=== PATIENT | male | born 1990 | race Caucasian/White ===

== ENCOUNTER 2018-05-06 23:06 | Emergency (ER) | payer OTHER, SELFPAY ==
[2018-05-06 23:07] VITALS: BP 157/87; PULSE 94; RESP 16; TEMP 36.7; O2SAT 97; BMI 60.8
[2018-05-06 23:16] VITALS: O2SAT 98
--- NOTE | 2018-05-06 23:25 | RAD_ITS ---
STUDY: X-RAY CHEST REASON FOR EXAM: Male, 28 years old. Shortness of breath and chest pain. TECHNIQUE: Single frontal view of the chest. COMPARISON: None. FINDINGS: The lungs are clear and expanded. There is no demonstrated pleural abnormality. Normal size heart. Normal mediastinum and adrian. Normal visualized pulmonary arteries. Normal visualized aortic arch and descending thoracic aorta. Normal visualized thoracic spine. Normal visualized ribs, clavicles, and shoulders. There is no demonstrated abnormality of the visualized soft tissue structures of the upper abdomen. RAD/Chest 1 View (Portable) IMPRESSION: No acute pathology. Electronically Signed: Devin Haynes MD at 0:18 EDT , Service support ,
--- NOTE | 2018-05-06 23:25 | EKG12_ITS ---
Test Reason : CP,SOB Blood Pressure : / mmHG Vent. Rate : 082 BPM Atrial Rate : 082 BPM P-R Int : 172 ms QRS Dur : 096 ms QT Int : 384 ms P-R-T Axes : 018 -09 014 degrees QTc Int : 448 ms Normal sinus rhythm Normal ECG Confirmed by LICHA GRANT, MARY ([id number]), newspaper editor LOVE BUCHANAN ([id number]) on 05/08/2018 12:43:49 PM Referred By: HAYDEE Confirmed By:MARY HURT MD
[2018-05-06 23:46] LABS: Absolute Lymphocyte Count 3.32 X10^3/ul (0.83-4.51); Absolute Neutrophil Count 5.2 X10^3/uL (2.0-7.7); Basophil# 0.02 X10^3/uL; Basophil% 0.2 % (0-1); Eosinophil# 0.26 X10^3/uL; Eosinophils% 2.8 % (0-5); Hematocrit 44.9 % (40-54); Hemoglobin 14.5 g/dl (13.0-16.5); Lymphocyte # 3.32 X10^3/ul (4.0); Lymphocyte % 35.1 % (19-41); Mean Corp Hgb Conc 32.3 g/gl (32-36); Mean Corpuscular Hgb 27.5 pg (27.0-32.0); Mean Corpuscular Volume 85.2 fL (80-94); Mean Platelet Vol. 11.5 fl (6.2-12.0); Monocyte# 0.63 X10^3/uL; Monocyte% 6.7 % (0-10); Neutrophil # 5.19 X10^3/uL (2.7-7.7); Neutrophil % 54.9 % (47-70); Platelet Count 214 K/mm3 (150-450); RBC Distribution Width CV 14.1 % (11.6-14.6); RBC Distribution Width SD 43.5 fl (35.1-43.9); Red Blood Count 5.27 M/mm3 (4.6-6.2); White Blood Count 9.5 K/mm3 (4.4-11.0)
[2018-05-06] MEDS: Aspirin 81 MG TAB.CHEW 324 MG PO (23:47)
[2018-05-06] MEDS: 0.9% Normal Saline 1,000 ML 1000 ML IV (23:47)
[2018-05-06 23:48] VITALS: O2SAT 95
[2018-05-06 23:48] LABS: POSITIVE COUNT NO; POSITIVE DIFFERENTIAL NO; POSITIVE MORPHOLOGY NO
[2018-05-06 23:58] LABS: Anion Gap 6 (5-15); BUN 11 mg/dL (7-18); BUN/Creat Ratio 15.4 RATIO (10-20); Calcium,Total 9.1 mg/dL (8.5-10.1); Chloride 105 mmol/L (98-107); Creatinine, Serum 0.72 mg/dL (0.70-1.30); D-Dimer Quantitative (DVT/PE) 0.53 FEU/ug/m (0.27-0.49); EST Glomerular Filtration Rate 138 mL/min (>60); Est Glom Filt Rate - Afr Amer 167 mL/min (>60); Estimated Creatinine Clearance 185.86 ml/min; Glucose 87 mg/dL (74-106); Sodium Level 142 mmol/L (136-145)
--- NOTE | 2018-05-07 00:21 | CT_ITS ---
STUDY: CTA CHEST REASON FOR EXAM: Male, 28 years old. Shortness of breath RADIATION DOSAGE (If Supplied By Facility): CTDIvol = ( 22.21 ) mGy, DLP = ( 1511.69 ) mGycm TECHNIQUE: The examination was performed with the intravenous administration of 100ML ml of Isovue 370 contrast material. Post-processing of the angiographic images was performed, with multiplanar reformation and 3D reconstruction. Individualized dose optimization techniques were used for this CT. COMPARISON: None. FINDINGS: : TRACHEA, THYROID, ESOPHAGUS: No tracheomalacia,stricture or wall thickening. Thyroid and esophagus are normal CARDIOVASCULAR SYSTEM:The thoracic aorta is normal with no aneurysm, dissection or developmental anomalies. The pulmonary trunk and the left and right pulmonary arteries and their lobar and segmental branches do not show any abnormal and persistent filling defects in them. There is therefore no evidence of pulmonary embolism. The heart is normal. There are no venous anomalies EUNICE AND LYMPH NODES: No hilar masses and no mediastinal, hilar, axillary or supraclavicular adenopathy LUNGS, LOW-ATTENUATION: No traction bronchiectasis, honeycombing,emphysema, lung cysts or cavitations LUNGS, HIGH ATTENUATION: No nodules/masses, ground glass opacities/consolidations or increased interstitial markings LUNGS, MOSAIC/CRAZY PAVING: Not evident PLEURA AND CHEST WALL: No plural effusions, pneumothoraces,rib fractures or any osteolytic/osteoblastic changes . The soft tissue chest wall including the breasts are normal UPPER ABDOMEN: Unremarkable CT/CTA Chest W/WO Contrast IMPRESSION: Normal CTA chest examination, without a demonstrated pulmonary embolism or arterial dissection. No acute findings in the lungs Electronically Signed: Aden Alarcon, at 2:28 EDT Tel , Service support ,
[2018-05-07 00:29] VITALS: BP 150/93; PULSE 86; RESP 23; O2SAT 98
[2018-05-07] MEDS: Ondansetron 4 MG/2 ML Vial IV (00:29)
[2018-05-07 01:49] VITALS: BP 134/86; PULSE 83; RESP 22; O2SAT 94
--- NOTE | 2018-05-07 02:33 | ED.VISSUMM ---
- ER Visit Summary Date of Service: 05/07/18 Chief Complaint: Shortness of breath History of Present Illness: The patient is a [address] Gardner. He reports his shortness of breath began approximately 1 week ago. States that severe at worst and moderate currently. Is worsened by laying flat. It is unchanged by exertion. In fact, he reports it is improved by walking around. He denies any fever, chills, or cough. Reports he has chest pain that began this morning at 10. States that intermittent pain last an hour at a time. It is a sharp pain. It is 7 out of 10 at worst and he is pain-free currently. States that this is not related to exertion. Is not worsened by deep breaths or movement. Patient reports that he has had similar episodes for approximately 9 years and does not have a diagnosis. He states his last stress test was approximately 3 years ago. No personal history of DVT. His sister did have a PE. No recent travel pillow. No ankle swelling or calf pain. He does have a history of obstructive sleep apnea. Reports that he has been compliant with his CPAP. Physical Examination: Vitals: Stable. Afebrile. General: Well-nourished and well-developed. Head: Normocephalic atraumatic. Neck: Supple, no lymphadenopathy. No JVD. Nontender. Cardiovascular: Regular rate and rhythm. No murmurs. Respiratory: No respiratory distress. Clear to auscultation bilaterally. Abdominal: Soft, nontender, nondistended, normal bowel sounds. No guarding, rebound, or peritoneal signs. Back: Nontender. Extremities: Nontender, 1+ pitting edema in the lower extremes bilaterally. Skin: Normal color, no rash. Neurologic: Alert and oriented ?3. Cranial nerves II through XII are intact. Normal strength and sensation. Psych: Normal affect. Test Results: EKG is sinus at 82 with no acute changes. Unchanged from 2014. Chest x-ray is normal. CBC is normal. Chem-7 is normal. Troponin is negative. D-dimer 0.53. CT of the chest shows no PE or dissection. Emergency Department Course and Treatment: Patient is resting comfortably without complaint. Treatment Plan: A prolonged discussion the patient at this time I do not have an explanation for his dyspnea. He appears well. He will be discharged instructions follow-up Dr. Gardner within 3-5 days for another exam. Return to the emergency department for any worsening symptoms. Disposition: To home in improved and stable condition. Impression: 1. Atypical chest pain. 2. Dyspnea, uncertain cause. This note was generated with [employer] dictation software. It may contain incorrect words, spelling, and punctuation that were not noted in review of the chart prior to signing ED Disposition - Plan for ED Patient: Chief Complaint: Shortness of Breath Instructions: ED Chest Pain Atypical Unkn Cause Referrals: Gerard Gardner MD [Primary Care Provider] - 3-5 Days
[2018-05-07 02:39] VITALS: BP 133/74; PULSE 80; RESP 18; O2SAT 94
== END 2018-05-07 02:50 | disposition home or self-care (01) ==
PROVIDERS: Emergency Provider Emergency Medicine; Family Provider Family Medicine; PCP Family Medicine
DX: R07.89 Other chest pain (principal); R06.00 Dyspnea, unspecified; R60.0 Localized edema; R11.0 Nausea; R19.7 Diarrhea, unspecified; G47.33 Obstructive sleep apnea (adult) (pediatric)
CPT/HCPCS: 71045; 71275; 80048; 84484; 85025; 85379; 93005; 96361; 96374; 99284; J7030; Q9967; A4216

== ENCOUNTER → 2018-07-19 09:05 | Outpatient (CLI) | payer OTHER, SELFPAY ==
--- NOTE | 2018-07-19 09:08 | CT_ITS ---
STUDY: CT ABDOMEN AND PELVIS WITHOUT CONTRAST REASON FOR EXAM: Male, 28 years old. Hematuria and left flank pain. RADIATION DOSAGE (If Supplied By Facility): CTDIvol = ( 34.45 ) mGy, DLP = ( 1979.87 ) mGycm TECHNIQUE: Transaxial images were obtained from the dome of the diaphragm to the symphysis pubis without oral contrast, and without intravenous contrast. Sagittal and coronal images were reconstructed. Individualized dose optimization techniques were used for this CT. COMPARISON: Comparison is made with prior study dated February 06, 2012. FINDINGS: The visualized lung bases are unremarkable. The visualized portions of the heart are within normal limits. Normal liver. Normal gallbladder and extrahepatic biliary system. Normal spleen. Normal pancreas. Normal bilateral adrenal glands. Normal right kidney. Normal left kidney. There is a small hiatal hernia. Normal small intestine. Normal colon. The appendix is visualized and appears normal. Normal abdominal aorta. Normal inferior vena cava. There is borderline retroperitoneal lymphadenopathy with enlarged nodes no greater than 10mm in the short axis diameter. Normal urinary bladder. A stable small phlebolith is seen in the left hemipelvis. Small benign-appearing bilateral inguinal lymph nodes. Normal abdominal wall. Normal osseous structures. CT/Abdomen/Pelvis without Cont IMPRESSION: Normal unenhanced CT of the abdomen and pelvis. Electronically Signed: Tray Gavin MD at 9:58 EDT Tel [phone], Service support ,
== END ==
PROVIDERS: Family Provider Family Medicine; PCP Family Medicine; Referring Provider Family Medicine; Visit Provider Family Medicine
DX: R10.9 Unspecified abdominal pain (principal); R30.0 Dysuria; R31.29 Other microscopic hematuria
CPT/HCPCS: 74176

== ENCOUNTER → 2019-06-03 | Outpatient (CLI) | payer OTHER, SELFPAY ==
--- NOTE | 2019-06-03 10:30 | VDLE_ITS ---
Reason For Study: Edema RIGHT LEFT GSV is normal. GSV is normal. FV is compressible, spontaneous, phasic, FV is compressible, spontaneous, phasic, competent and demonstrates normal competent and demonstrates normal augmentation. augmentation. POP V is compressible, spontaneous, phasic, POP V is compressible, spontaneous, phasic, competent and demonstrates normal competent and demonstrates normal augmentation. augmentation. T/P Trunk is compressible. T/P Trunk is compressible. PTV is compressible. PTV is compressible. Unable to visualize CFV, SFJ, and PeroV due Unable to visualize CFV, SFJ, and PeroV due to pt body habitus. to pt body habitus. Procedure Exam performed in department. The study was technically limited. The study was technically difficult. A preliminary report was called and/or faxed to [facility]. Interpretation Summary Deep veins of the lower extremities are bilaterally patent and compressible segmentally. There is no evidence of deep vein thrombosis on either side. Valvular competence appears intact within the proximal deep venous systems bilaterally. The great saphenous veins appear bilaterally patent and compressible segmentally. The common femoral veins, peroneal veins, and sapheno-femoral junctions were not visualized on either side due to the patient's body habitus. Ordering Physician: Gerard Gardner Referring Physician: Gerard Gardner Performed By: Lray Lopez RVT
== END | disposition home or self-care (01) ==
LOC: CVS 10:27
PROVIDERS: Family Provider Family Medicine; PCP Family Medicine; Referring Provider Family Medicine; Visit Provider Family Medicine
DX: R60.9 Edema, unspecified (principal)
CPT/HCPCS: 93970

== ENCOUNTER 2020-12-09 16:02 | Observation (INO) | payer OTHER, SELFPAY ==
[2020-12-09] VITALS (25 sets, daily range): BP systolic 127–167; BP diastolic 66–105; PULSE 86–135; RESP 16–29; TEMP 36.4–37.3; O2SAT 80–100; BMI 76.1; BMI 76.2
--- NOTE | 2020-12-09 08:11 | HP.PCM_ITS ---
History and Physical Date of Admission: 12/09/20 HISTORY AND PHYSICAL Rolo Zamorano is a 30 y/o super morbidly obese WM who presents for upper and lower endoscopy. The patient has a history that includes GERD, DHAVAL using CPAP, HTN, anxiety, herniated disc. Chart review reveals a positive Hpylori that was positive in 2014 and treated. At that time his weight was 450#. Weight 07/30/20 was recorded as 605#. BMI 75.6. Presenting complaint: The patient presents today reporting that he was found to be anemic about a year ago, but that he and Dr. Gardner were just keeping an eye on it. This year the iron deficiency was more of an issue. Taking omeprazole 20mg daily for a long time, possibly since 2014, when treated for Hpylori. Usually has dinner: 5-7p. Evening snack: no. Bedtime medications: yes, most of them. Heads to bed: Works 3rd shift, Lays down for an hour when he gets home, then up and lays down again about 8p-11. Sleeps in a regular bed with the head of the bed flat. Reports having had upper abdominal pain, lasting about 3 days, along with belching a lot. This might have been a month or more ago. Eating seemed to make it worse. There was diarrhea the 3rd day. The patient denies and other change in bowel habits. No rectal bleeding. Having a bowel movement about twice a day. PAST MEDICAL HISTORY Essential hypertension GERD (gastroesophageal reflux disease) Super morbid Obesity, BMI 74 E66.01 DHAVAL (obstructive sleep apnea) PAST SURGICAL HISTORY OF wisdom teeth extraction FAMILY HISTORY Heart Paternal Grandfather Psychiatry Maternal Grandfather Diabetes Father CURRENT MEDICATIONS furosemide (LASIX) 40 mg tablet ferrous sulfate 325 mg (65 mg iron) tablet mupirocin (BACTROBAN) 2 % ointment escitalopram oxalate (LEXAPRO) 20 mg tablet lisinopril (PRINIVIL) 10 mg tablet albuterol HFA (VENTOLIN HFA) 90 mcg/actuation inhaler omeprazole (PRILOSEC) 20 mg capsule cholecalciferol, Vitamin D3, (VITAMIN D3) 50,000 unit cap capsule SOCIAL HISTORY: Patient is . He has never smoked. Rolo reports his alcohol use as never. REVIEW OF SYSTEMS: GENERAL: No weight loss, malaise or fevers RESPIRATORY: CPAP for DHAVAL. No new or worsening SOB or cough. CARDIOVASCULAR: Hypertension and BLE edema. GI: The patient states that his appetite has been adequate. He does get hungry. There has been no nausea, no vomiting. He denies dysphagia and denies odynophagia. There has occasionally been indigestion without heartburn. There has not been regurgitation. Bowel habits have been regular. There had been diarrhea, one episode,as reported above. There has not been constipation. The patient denies rectal bleeding. There has not been melena. Intermittent abdomina l pain that is located in the upper abdomen. MUSCULOSKELETAL: History of herniated disc. Negative for new or worsening joint pain or swelling, back pain or muscle pain PSYCH: Positive for anxiety. HEMATOLOGY/LYMPHOLOGY Positive for lymphedema: lower extremities reported in 08/2020. No blood disorder. ENDOCRINE: Negative for thyroid or diabetes. NEURO: No history of headaches, syncope, paralysis, seizures or tremors All other reviewed and negative other than HPI. PHYSICAL EXAMINATION: Blood pressure 140/99, pulse 91, height 191.6 cm (6' 3.43), weight (!) 274.4 kg (605 lb), SpO2 95 %. General Appearance: Well appearing, alert, in no acute distress, well-hydrated, well nourished. Morbidly obese. Skin: Skin color, texture, turgor normal, no suspicious rashes or lesions. Head: Normocephalic, no masses, lesions, tenderness or abnormalities. Eyes: Anicteric sclera. Pupils are equally round and reactive to light. Extraocular movements are intact. Lips, teeth and tongue normal. Neck: Supple, no adenopathy. Lungs: Lungs clear to auscultation. No wheezing, rhonchi, rales.. Heart: RRR without murmur. Abdomen: Abdomen rotund, non-tender. Bowel sounds normal. No palpable masses, organomegaly. Extremities: Edema: Bilateral, non-pitting. Neurologic: Gait normal. Sensation grossly intact. Impression: Iron deficiency anemia 2)halfway use of PPI 3)history of Hpylori Plan: Continue omeprazole for now. The patient is scheduled for upper endoscopy, with MAC. Preparation for the procedure and the procedure itself have been explained in detail. The risks, benefits, anticipated outcomes and possible complications were mentioned. I also explained the procedure in understandable terms and the patient was given printed material concerning the planned procedure. The patient had the opportunity to ask questions concerning the planned procedure. The patient freely consents to the planned procedure. The patient is scheduled for a procedure at the [facility]. I have explained that his/her health and safety, as well as that of our staff is important. The risk of exposure to, or potential harm posed by the COVID-19 virus with having a procedure at this time is as minimal as possible. Measures are being taken to minimize any potential risk of infection. I have explained that he/she will see that the staff will be wearing masks and gloves. The patient's temperature will be taken on arrival, they will be asked a series of questions to reassess current wellness, and asked to use hand sales process manager foam. The bed areas are cleaned and the procedure rooms are thoroughly disinfected between patients. Procedure rooms will be alternated to give the disinfection more than enough time to ensure adequate protection for all involved. The patient is asked to call with any questions or concerns, or if there is a change in health status between now and the scheduled procedure. Amanda Mathis RN PATIENT SCHEDULING COORDINATOR.HAND HEEL SEAT FITTER
[2020-12-09] MEDS: Lactated Ringers 1,000 ML 75 ML IV (11:16)
--- NOTE | 2020-12-09 12:14 | OP.CCLET_ITS ---
12/09/2020 Gerard Gardner Re : Upper GI endoscopy procedure for Rolo Zamorano Dear Kendra This procedure was performed on Wednesday, December 09, 2020. My impressions and recommendations are as follows: Impressions : - The procedure was aborted due to the patient's body habitus. - No specimens collected. Recommendations : - Discharge patient to home. - Continue present medications. My findings are described in the full procedure note, which is enclosed. If I can be of further assistance, please feel free to contact me at Doctor phone number(s): , Work: . Sincerely, MD Leslie Paredes MD 12/09/2020 12:14:13 PM This report has been signed electronically.
--- NOTE | 2020-12-09 12:14 | OP.EGD_ITS ---
Patient Name: Rolo Zamorano Procedure Date: 12/09/2020 11:37 AM Date of : 1990 Age: 30 Procedure: Upper GI endoscopy Indications: Heartburn Providers: Leslie Jay MD Referring MD: Leslie Jay MD Medicines: See the Anesthesia note for documentation of the administered medications Patient Profile: Refer to note in patient chart for documentation of history and physical. Complications: No immediate complications. Procedure: Pre-Anesthesia Assessment: - see anesthesia note After obtaining informed consent, the endoscope was passed under direct vision. Throughout the procedure, the patient's blood pressure, pulse, and oxygen saturations were monitored continuously. The procedure was aborted. The scope was inserted only to patient's back of mouth. Medications were given by anesthesia provider prior to insertion. The procedure was aborted due to the patient's body habitus, patient had bronchospasm and given concern for airway, procedure was immediately aborted. Scope In: 11:58:49 AM Scope Out: 12:02:36 PM Total Procedure Duration Time 0 hours 3 minutes 47 seconds Findings: aborted procedure Impression: - The procedure was aborted due to the patient's body habitus. - No specimens collected. Recommendation: - Discharge patient to home. - Continue present medications. Diagnosis Code(s): --- Professional --- R12, Heartburn Z53.8, Procedure and treatment not carried out for other reasons MD Leslie Paredes MD 12/09/2020 12:14:13 PM This report has been signed electronically. Number of Addenda: 0 Note Initiated On: 12/09/2020 11:37 AM
--- NOTE | 2020-12-09 14:20 | SUR.PHASEII ---
GAVE PATIENT AN INCENTIVE SPIROMETER AND INSTRUCTED ON USE. PATIENT DEMONSTRATED USE.
--- NOTE | 2020-12-09 14:57 | SUR.PHASEII ---
Dr. Rojas on phone with Dr. askew discussing pt. breathing that pulse ox low. Dr. askew states wants pt. sent to er to be worked up.
--- NOTE | 2020-12-09 16:19 | PCM.HP.STD ---
<Malia Castro MARKETING/SALES PERSON - Last Filed: 12/09/20 16:28> Problem List (1) Morbid obesity with BMI of 70 and over, adult Status: Chronic (2) DHAVAL (obstructive sleep apnea) Status: Chronic (3) Anxiety Status: Chronic (4) GERD (gastroesophageal reflux disease) Status: Chronic (5) HTN (hypertension) Status: Chronic History of Present Illness Date of Admission: 12/09/20 Chief Complaint: Bronchospasm during EGD. The patient is a 30 year old M who presents with bronchospasm during EGD procedure. Patient states they were not able to complete EGD due to bronchospasm. He denies shortness of breath, cough. He complains of mild tickle in his upper chest. Denies asthma history although he uses a as needed inhaler for shortness of breath. He has a past medical history of morbid obesity, DHAVAL on CPAP, hypertension, anxiety, GERD. Patient states he was undergoing EGD due to significant reflux. Past Medical History Past Medical History (Chronic Problems): Chronic Problems Morbid obesity with BMI of 70 and over, adult (Chronic) DHAVAL (obstructive sleep apnea) (Chronic) Anxiety (Chronic) GERD (gastroesophageal reflux disease) (Chronic) HTN (hypertension) (Chronic) Allergies Iodinated Contrast Media [CONTRASTS] Adverse Reaction (Verified 12/03/20 13:09) Vomiting Home Medications: Ambulatory Orders Medication Instructions Recorded Albuterol Aerosols [Ventolin 2.5 mg INHALATION Q2H PRN PRN 12/03/20 Aerosols] Escitalopram Oxalate [Lexapro] 20 mg PO DAILY 12/03/20 Ferrous Sulfate 325 mg PO BIDCM 12/03/20 Furosemide [Lasix] 40 mg PO DAILY 12/03/20 Lisinopril [Zestril] 10 mg PO DAILY 12/03/20 Omeprazole 20 mg PO DAILY 12/03/20 Surgical History: - - [place] teeth extraction Psychiatric History: Anxiety Lives: Spouse/ Significant Other Smoking Status: Never smoker Tobacco Use: Non-smoker Alcohol: None Drugs: None - *Family History Maternal History Items: - - Denies known maternal medical history including cardiac history. Paternal History Items: - - Denies known paternal medical history including cardiac history. Review of Systems Constitutional: Denies: Chills, Fever, Weight Change HEENT: Denies: Head Aches, Sinus Congestion, Sinus Drainage Cardiovascular: Denies: Chest Pain, Palpitations Respiratory: Denies: Cough, Shortness of breath at rest, Sputum production Gastrointestinal: Denies: Abdominal Pain, Nausea, Vomiting Genitourinary: Denies: Dysuria Musculoskeletal: Denies: Joint Pain, Joint Tenderness Skin: Denies: Rash, Wounds Neurological: Denies: Numbness, Tingling, Focal weakness Psychiatric: Denies: Anxiety, Depression, Homicidal Ideations, Suicidal Ideations Hematologic/ Lymphatic: Denies: Easy Bruising, Easy Bleeding VTE Information - Inpt Only VTE Present on Admission: No VTE Mechan Device Prophylaxis: None VTE Pharm Prophylaxis ordered?: Yes - Physical Exam Vitals/I&O's: Vital Signs Temp Pulse Resp BP Pulse Ox 98.1 F 95 22 H 149/98 H 80 12/09/20 14:02 12/09/20 14:02 12/09/20 14:02 12/09/20 14:02 12/09/20 14:02 Oxygen Flow Rate (L/min) 10 Oxygen Delivery Method Room Air Weight: 625 lb 10.75 oz Body Mass Index (BMI) 76.1 General: Alert, Oriented x3, Cooperative HEENT: Atraumatic, PERRLA, EOMI, Normocephalic Neck: Supple, No JVD, Negative Carotid Bruits Lungs: Clear to auscultation, Diminished, - - Globally diminished Cardiovascular: Regular rate, No murmurs Abdomen: Bowel Sounds Present, Soft, Non Tender, Non-Distended, Obese Extremities: No clubbing, No cyanosis, Capillary Refill Less than 3 Seconds, Edema - Bilateral lower extremities Skin: No rashes, No breakdown, - - Chronic hyperpigmentation BLLE Musculoskeletal: No Tenderness to Palpation of Joints or Extremities Neurological: Cranial nerves II-XII grossly intact, Neuro grossly intact Psych/Mental Status: Normal Affect, Appropriate Microbiology Past 72 Hours 12/08/20 09:08 Interface Orders SARS-CoV-2 Antigen (Rapid) - Final Current Medications Acetaminophen (Acetaminophen 325 Mg Tablet) 650 mg PO Q6H PRN PRN PRN Reason: Pain Score 1-10/Temp > 100.7 F Albuterol Sulfate (Albuterol 2.5 Mg/3 Ml Vial.Neb.) 2.5 mg INHALATION Q2H PRN PRN PRN Reason: SOB/Wheezing Escitalopram Oxalate (Escitalopram Oxalate 20 Mg Tablet) 20 mg PO DAILY [facility] Ferrous Sulfate (Ferrous Sulfate 325 Mg Tablet) 325 mg PO BIDCM [facility] Furosemide (Furosemide 40 Mg Tablet) 40 mg PO DAILY [facility] Melatonin (Melatonin 3 Mg Tablet) 3 mg PO QHS PRN PRN PRN Reason: INSOMNIA Non-Formulary Medication (Omeprazole) 20 mg PO DAILY [facility] Ondansetron HCl (Ondansetron 4 Mg/2 Ml Vial) 4 mg IV Q8H PRN PRN PRN Reason: NAUSEA/VOMITING Sodium Chloride (0.9% Normal Saline 250 Ml Iv.Soln.) 250 ml IV UD PRN PRN Reason: Hypotension Sodium Chloride (0.9% Saline Lock 10 Ml Syringe) 10 - 40 ml IV UD PRN PRN Reason: SALINE FLUSH Assessment/Plan 1. Bronchospasm-occurring during EGD. Now appears stable. As needed albuterol aerosol. Not documented to be hypoxic. Monitor overnight. 2. Morbid obesity-diet and lifestyle modifications encouraged. 3. DHAVAL-continue home CPAP regimen. 4. Hypertension-continue Lasix, lisinopril. 5. Anxiety-on Lexapro. DVT prophylaxis- Lovenox sc This patient was seen by ANTONIA RicardoC under the supervision of Dr. Leonard. <José Miguel Leonard F - Last Filed: 12/09/20 18:32> History of Present Illness The patient is a 30 year old M [] Past Medical History Allergies Iodinated Contrast Media [CONTRASTS] Adverse Reaction (Verified 12/03/20 13:09) Vomiting - Physical Exam Vitals/I&O's: Vital Signs Temp Pulse Resp BP Pulse Ox 97.6 F L 103 H 26 H 158/100 H 94 12/09/20 16:00 12/09/20 18:00 12/09/20 18:00 12/09/20 18:00 12/09/20 18:00 Oxygen Flow Rate (L/min) 2 Oxygen Delivery Method Nasal Cannula Weight: 625 lb 10.75 oz Body Mass Index (BMI) 76.1 Intake and Output for Last 24 Hours 12/07/20 12/08/20 12/09/20 23:59 23:59 23:59 Intake Total 743.75 / 743.75 Balance 743.75 / 743.75 Microbiology Past 72 Hours 12/08/20 09:08 Interface Orders SARS-CoV-2 Antigen (Rapid) - Final Laboratory Results 12/09/20 16:28: Sodium 142, Potassium 3.7, Chloride 108 H, Carbon Dioxide 32.0, Anion Gap 2 L, BUN 12, Creatinine 0.58 L, Estim Creat Clear Calc 226.56, Est GFR (MDRD) Af Amer 208, Est GFR (MDRD) Non-Af 172, BUN/Creatinine Ratio 20.6 H, Glucose 101, Calcium 8.6 12/09/20 16:28: WBC 8.2, RBC 4.75, Hgb 11.9 L, Hct 39.1 L, MCV 82.3, MCH 25.1 L, MCHC 30.4 L, RDW Std Deviation 50.6 H, RDW Coeff of Melchor 17.0 H, Plt Count 211, MPV 10.9, Immature Gran % (Auto) 0.200, Neut % (Auto) 74.1 H, Lymph % (Auto) 18.4 L, Jenkins % (Auto) 5.6, Eos % (Auto) 1.3, Baso % (Auto) 0.4, Absolute Neuts (auto) 6.1, Absolute Lymphs (auto) 1.51, Nucleated RBC % 0 Current Medications Acetaminophen (Acetaminophen 325 Mg Tablet) 650 mg PO Q6H PRN PRN PRN Reason: Pain Score 1-10/Temp > 100.7 F Albuterol Sulfate (Albuterol 2.5 Mg/3 Ml Vial.Neb.) 2.5 mg INHALATION Q2H PRN PRN PRN Reason: SOB/Wheezing Last Admin: 12/09/20 16:31 Dose: 2.5 mg Documented by: Enoxaparin Sodium (Enoxaparin 40 Mg/0.4 Ml Syringe) 40 mg SC DAILY [facility] Escitalopram Oxalate (Escitalopram Oxalate 20 Mg Tablet) 20 mg PO DAILY [facility] Ferrous Sulfate (Ferrous Sulfate 325 Mg Tablet) 325 mg PO BIDCM [facility] Last Admin: 12/09/20 17:33 Dose: 325 mg Documented by: Furosemide (Furosemide 40 Mg Tablet) 40 mg PO DAILY [facility] Melatonin (Melatonin 3 Mg Tablet) 3 mg PO QHS PRN PRN PRN Reason: INSOMNIA Ondansetron HCl (Ondansetron 4 Mg/2 Ml Vial) 4 mg IV Q8H PRN PRN PRN Reason: NAUSEA/VOMITING Pantoprazole Sodium (Pantoprazole Sodium 20 Mg Tablet) 20 mg PO DAILY [facility] Sodium Chloride (0.9% Normal Saline 250 Ml Iv.Soln.) 250 ml IV UD PRN PRN Reason: Hypotension Sodium Chloride (0.9% Saline Lock 10 Ml Syringe) 10 - 40 ml IV UD PRN PRN Reason: SALINE FLUSH Last Admin: 12/09/20 17:33 Dose: 20 ml Documented by: Addendum: Dr. Leonard I personally examined the patient and reviewed the chart. I agree with the above. 30-year-old male with super morbid obesity presents for an EGD and colonoscopy however during the procedure after his conscious sedation with ketamine and Versed, he developed a bronchospasm requiring oxygen. He does not have any stridor on exam and states he otherwise feels fine. He was accepted as a direct admission and transferred to the ICU. He is now on 2 L nasal cannula and doing well and will continue with albuterol meds.. He does wear CPAP at night for his obstructive sleep apnea, his will bring it in tonight. If necessary, if his oxygen requirements start increasing, would add Benadryl. OBSV E&M: 35477 Initial observation care L2
[2020-12-09] MEDS: Albuterol 2.5 MG/3 ML VIAL.NEB. INHALATION ×5 (16:31→21:09)
--- NOTE | 2020-12-09 16:31 | CPS ---
Pt was brought to ICU and was given Albuterol x 3 d/t anesthesia observing pt bronchospasm after medication was given before a upper endoscopy, per surgery notes, the scope had not passed beyond the back of his mouth when he bronchospasmed. Pt's breath sounds are clear and diminished, no wheezing auscultated @this time.
[2020-12-09 16:40] LABS: Absolute Lymphocyte Count 1.51 X10^3/uL (0.83-4.51); Absolute Neutrophil Count 6.1 X10^3/uL (2.0-7.7); Basophil# 0.03 X10^3/uL; Basophil% 0.4 % (0-1); Eosinophil# 0.11 X10^3/uL; Eosinophils% 1.3 % (0-5); Hematocrit 39.1 % (40-54); Hemoglobin 11.9 g/dL (13.0-16.5); Lymphocyte # 1.51 X10^3/ul (4.0); Lymphocyte % 18.4 % (19-41); Mean Corp Hgb Conc 30.4 g/dL (32-36); Mean Corpuscular Hgb 25.1 pg (27.0-32.0); Mean Corpuscular Volume 82.3 fL (80-94); Mean Platelet Vol. 10.9 fl (6.2-12.0); Monocyte# 0.46 X10^3/uL; Monocyte% 5.6 % (0-10); NRBC Flagged by Analyzer 0 % (0-5); Neutrophil # 6.07 X10^3/uL (2.7-7.7); Neutrophil % 74.1 % (47-70); Platelet Count 211 K/mm3 (150-450); RBC Distribution Width SD 50.6 fl (35.1-43.9); Red Blood Count 4.75 M/mm3 (4.6-6.2); White Blood Count 8.2 K/mm3 (4.4-11.0)
--- NOTE | 2020-12-09 17:00 | CPS ---
Addendum entered and electronically signed by Sasha Gilliland RRT 12/09/20 17:35: pt's is unable to bring his CPAP in so R.T. will set one up tonight. Original Note: Pt is going to call his and see if she can bring in his CPAP of 14cm H2O so he can wear it tonight instead of one of the hospital's machines.
[2020-12-09 17:08] LABS: Anion Gap 2 (5-15); BUN 12 mg/dL (7-18); BUN/Creat Ratio 20.6 RATIO (10-20); Calcium,Total 8.6 mg/dL (8.5-10.1); Chloride 108 mmol/L (98-107); Creatinine, Serum 0.58 mg/dL (0.70-1.30); EST Glomerular Filtration Rate 172 mL/min (>60); Est Glom Filt Rate - Afr Amer 208 mL/min (>60); Estimated Creatinine Clearance 226.56 ml/min; Glucose 101 mg/dL (74-106); Potassium 3.7 mmol/L (3.5-5.1); Sodium Level 142 mmol/L (136-145)
[2020-12-09] MEDS: Ferrous Sulfate 325 MG Tablet PO (17:33)
[2020-12-09] MEDS: 0.9% Saline Lock 10 ML Syringe IV (17:33)
--- NOTE | 2020-12-09 23:29 | CPS ---
AutoPAP with pressure range of min 5 and max 20. With no O2 added to SL machine
[2020-12-10] VITALS (7 sets, daily range): BP systolic 151–162; BP diastolic 79–84; PULSE 72–95; RESP 14–27; TEMP 36.4–36.8; O2SAT 91–95
--- NOTE | 2020-12-10 00:23 | CPS ---
Patient was changed to CPAP of 14 with 3L O2 Bled instead of AutoPAP because of desaturations noted. Patient wears CPAP of 14 at home, but RESPIRATORY DIRECTOR changed to AutoPAP initially because of possible under titration of pressure due to how long ago sleep study was. After around 20mins director of midwifery/staff midwife noted desaturations into the mid 70s on CPAP of 14 with 3L O2. RESPIRATORY DIRECTOR increased CPAP pressure to 17.
[2020-12-10 03:26] LABS: Absolute Lymphocyte Count 1.51 X10^3/uL (0.83-4.51); Absolute Neutrophil Count 5.1 X10^3/uL (2.0-7.7); Basophil# 0.03 X10^3/uL; Basophil% 0.4 % (0-1); Eosinophil# 0.14 X10^3/uL; Eosinophils% 1.9 % (0-5); Hematocrit 39.3 % (40-54); Hemoglobin 11.7 g/dL (13.0-16.5); Lymphocyte # 1.51 X10^3/ul (4.0); Lymphocyte % 20.7 % (19-41); Mean Corp Hgb Conc 29.8 g/dL (32-36); Mean Corpuscular Hgb 25.1 pg (27.0-32.0); Mean Corpuscular Volume 84.2 fL (80-94); Mean Platelet Vol. 10.4 fl (6.2-12.0); Monocyte# 0.52 X10^3/uL; Monocyte% 7.1 % (0-10); NRBC Flagged by Analyzer 0 % (0-5); Neutrophil # 5.09 X10^3/uL (2.7-7.7); Neutrophil % 69.6 % (47-70); Platelet Count 206 K/mm3 (150-450); RBC Distribution Width CV 17.1 % (11.6-14.6); RBC Distribution Width SD 52.2 fl (35.1-43.9); Red Blood Count 4.67 M/mm3 (4.6-6.2); White Blood Count 7.3 K/mm3 (4.4-11.0)
[2020-12-10 03:38] LABS: Anion Gap 4 (5-15); BUN 12 mg/dL (7-18); BUN/Creat Ratio 20.7 RATIO (10-20); Calcium,Total 8.5 mg/dL (8.5-10.1); Chloride 106 mmol/L (98-107); Creatinine, Serum 0.58 mg/dL (0.70-1.30); EST Glomerular Filtration Rate 173 mL/min (>60); Est Glom Filt Rate - Afr Amer 209 mL/min (>60); Estimated Creatinine Clearance 226.56 ml/min; Glucose 115 mg/dL (74-106); Potassium 3.3 mmol/L (3.5-5.1); Sodium Level 142 mmol/L (136-145)
--- NOTE | 2020-12-10 06:59 | PCM.CON.CC ---
Problem List (1) Morbid obesity with BMI of 70 and over, adult Status: Chronic (2) DHAVAL (obstructive sleep apnea) Status: Chronic (3) Anxiety Status: Chronic (4) GERD (gastroesophageal reflux disease) Status: Chronic (5) HTN (hypertension) Status: Chronic Reason for Consult Date of Consultation: 12/10/20 Reason for Consultation: Respiratory failure History of Present Illness: The patient is a 30 year old M, with past medical history listed below, who presented to [facility] on 12/09/2020 secondary to an elective upper and lower endoscopy. Patient reportedly had a positive H. pylori in 2014 and was treated. Since that time, patient has gained approximately 150 pounds and currently had a BMI of 75.6. As patient was receiving anesthesia for EGD procedure, patient reportedly went into bronchospasm and the procedure was terminated. Patient reportedly received 1 of Versed, 300 of ketamine and Decadron by anesthesia per the record. However, this is difficult to read. The patient was transferred to the intensive care unit for further evaluation. Prior to the procedure, patient reports that he was of his usual health. Patient did not reported any constitutional symptoms such as fever, chills or sinus congestion. Patient denied any COVID-19 exposures. 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 Patient has had a diagnosis of obstructive sleep apnea and is on home CPAP at 14 cm of water. However, patient has gained approximate 150 pounds since that sleep study. Patient states he does tend to sleep in a chair initially and then goes to bed. Patient does feel tired during the day, but is unaware if he snores with his CPAP in place. Overnight, patient has had some hypoxia and did require an increase in his CPAP settings along with oxygen bleed. Patient did not have any hemodynamic instability requiring intervention. Patient is not reporting any new symptomatology this morning and states he feels that he is back to normal. Patient denies any current chest pain, nominal pain, nausea or vomiting. Review of systems otherwise negative from a constitutional, HEENT, respiratory, cardiovascular, GI, genitourinary, musculoskeletal, skin, neurologic, psychiatric and hematologic system unless stated above. Past Medical History Past Medical History (Chronic Problems): Chronic Problems Morbid obesity with BMI of 70 and over, adult (Chronic) DHAVAL (obstructive sleep apnea) (Chronic) Anxiety (Chronic) GERD (gastroesophageal reflux disease) (Chronic) HTN (hypertension) (Chronic) Allergies Iodinated Contrast Media [CONTRASTS] Adverse Reaction (Verified 12/03/20 13:09) Vomiting Home Medications: Ambulatory Orders Medication Instructions Recorded Albuterol Aerosols [Ventolin 2.5 mg INHALATION Q2H PRN PRN 12/03/20 Aerosols] Escitalopram Oxalate [Lexapro] 20 mg PO DAILY 12/03/20 Ferrous Sulfate 325 mg PO BIDCM 12/03/20 Furosemide [Lasix] 40 mg PO DAILY 12/03/20 Lisinopril [Zestril] 10 mg PO DAILY 12/03/20 Omeprazole 20 mg PO DAILY 12/03/20 Surgical History: - - [place] teeth extraction Psychiatric History: Anxiety Lives: Spouse/ Significant Other Smoking Status: Never smoker Tobacco Use: Non-smoker Alcohol: None Drugs: None - *Family History Maternal History Items: - - Denies known maternal medical history including cardiac history. Paternal History Items: - - Denies known paternal medical history including cardiac history. Review of Systems Comment: See HPI - Physical Exam Vitals/I&O's: Vital Signs Temp Pulse Resp BP Pulse Ox 36.4 C L 80 27 H 151/79 H 95 12/10/20 01:39 12/10/20 05:00 12/10/20 05:00 12/10/20 01:39 12/10/20 05:00 Oxygen Flow Rate (L/min) 3 Oxygen Delivery Method CPAP Weight: 283.8 kg Body Mass Index (BMI) 76.1 Intake and Output for Last 24 Hours 12/08/20 12/09/20 12/10/20 23:59 23:59 23:59 Intake Total 743.75 / 893.75 525 / 525 Output Total 1000 / 1000 Balance 743.75 / 893.75 -475 / -475 General: Alert, Oriented x3, Cooperative, No apparent distress, - - Super morbidly obese. No conversational dyspnea. HEENT: Atraumatic, PERRLA, EOMI, Normocephalic, - - No scleral icterus or injection noted Oral: Moist Mucosa, No Gingival or Mucosal Lesions/ Ulcerations, - - Crowded posterior pharynx Neck: Supple, No Nodes, Trachea Midline, - - Unable to assess JVD secondary to body habitus Lungs: No rhonchi, No wheeze, No rales, Diminished, - - Examined sitting upright in the chair Cardiovascular: Regular rate, Regular Rhythm, Normal S1, Normal S2, No murmurs, No rub noted, No Gallop, - - Distant heart sounds secondary to body position and size Abdomen: Bowel Sounds Present, Soft, Non Tender, Non-Distended, Obese Extremities: No clubbing, No cyanosis, Edema Skin: No rashes, No breakdown, - - Early venous stasis changes lower extremities Musculoskeletal: No Tenderness to Palpation of Joints or Extremities Lymphatic: No Cervical, Supraclavicular, or Inguinal Adenopathy Neurological: Cranial nerves II-XII grossly intact, Neuro grossly intact, Motor Exam 5/5 strength throughout Psych/Mental Status: Alert and oriented to time, place, person, mood and affect Microbiology Past 72 Hours 12/08/20 09:08 Interface Orders SARS-CoV-2 Antigen (Rapid) - Final Laboratory Results 12/09/20 16:28: Sodium 142, Potassium 3.7, Chloride 108 H, Carbon Dioxide 32.0, Anion Gap 2 L, BUN 12, Creatinine 0.58 L, Estim Creat Clear Calc 226.56, Est GFR (MDRD) Af Amer 208, Est GFR (MDRD) Non-Af 172, BUN/Creatinine Ratio 20.6 H, Glucose 101, Calcium 8.6 12/09/20 16:28: WBC 8.2, RBC 4.75, Hgb 11.9 L, Hct 39.1 L, MCV 82.3, MCH 25.1 L, MCHC 30.4 L, RDW Std Deviation 50.6 H, RDW Coeff of Melchor 17.0 H, Plt Count 211, MPV 10.9, Immature Gran % (Auto) 0.200, Neut % (Auto) 74.1 H, Lymph % (Auto) 18.4 L, [place] % (Auto) 5.6, Eos % (Auto) 1.3, Baso % (Auto) 0.4, Absolute Neuts (auto) 6.1, Absolute Lymphs (auto) 1.51, Nucleated RBC % 0 12/10/20 03:20: WBC 7.3, RBC 4.67, Hgb 11.7 L, Hct 39.3 L, MCV 84.2, MCH 25.1 L, MCHC 29.8 L, RDW Std Deviation 52.2 H, RDW Coeff of Melchor 17.1 H, Plt Count 206, MPV 10.4, Immature Gran % (Auto) 0.300, Neut % (Auto) 69.6, Lymph % (Auto) 20.7, Talbot % (Auto) 7.1, Eos % (Auto) 1.9, Baso % (Auto) 0.4, Absolute Neuts (auto) 5.1, Absolute Lymphs (auto) 1.51, Nucleated RBC % 0 12/10/20 03:20: Sodium 142, Potassium 3.3 L, Chloride 106, Carbon Dioxide 32.0, Anion Gap 4 L, BUN 12, Creatinine 0.58 L, Estim Creat Clear Calc 226.56, Est GFR (MDRD) Af Amer 209, Est GFR (MDRD) Non-Af 173, BUN/Creatinine Ratio 20.7 H, Glucose 115 H, Calcium 8.5 Current Medications Acetaminophen (Acetaminophen 325 Mg Tablet) 650 mg PO Q6H PRN PRN PRN Reason: Pain Score 1-10/Temp > 100.7 F Albuterol Sulfate (Albuterol 2.5 Mg/3 Ml Vial.Neb.) 2.5 mg INHALATION Q2H PRN PRN PRN Reason: SOB/Wheezing Last Admin: 12/09/20 21:09 Dose: 2.5 mg Documented by: Enoxaparin Sodium (Enoxaparin 40 Mg/0.4 Ml Syringe) 40 mg SC DAILY [facility] Escitalopram Oxalate (Escitalopram Oxalate 20 Mg Tablet) 20 mg PO DAILY [facility] Ferrous Sulfate (Ferrous Sulfate 325 Mg Tablet) 325 mg PO BIDCM [facility] Last Admin: 12/09/20 17:33 Dose: 325 mg Documented by: Furosemide (Furosemide 40 Mg Tablet) 40 mg PO DAILY [facility] Lisinopril (Lisinopril 10 Mg Tablet) 10 mg PO DAILY [facility] Melatonin (Melatonin 3 Mg Tablet) 3 mg PO QHS PRN PRN PRN Reason: INSOMNIA Ondansetron HCl (Ondansetron 4 Mg/2 Ml Vial) 4 mg IV Q8H PRN PRN PRN Reason: NAUSEA/VOMITING Pantoprazole Sodium (Pantoprazole Sodium 20 Mg Tablet) 20 mg PO DAILY [facility] Sodium Chloride (0.9% Normal Saline 250 Ml Iv.Soln.) 250 ml IV UD PRN PRN Reason: Hypotension Sodium Chloride (0.9% Saline Lock 10 Ml Syringe) 10 - 40 ml IV UD PRN PRN Reason: SALINE FLUSH Last Admin: 12/09/20 17:33 Dose: 20 ml Documented by: Assessment/Plan RECOMMENDATIONS: 1. Attempt room air challenge 2. Walking oximetry prior to discharge 3. Patient should likely be evaluated with echocardiogram, but this does not need to be done as an inpatient 4. Outpatient repeat polysomnogram 5. Possible discharge later today IMPRESSIONS: 1. Acute bronchospasm/respiratory insufficiency following anesthesia Clinical suspicion for obstructive phenomenon secondary to anesthesia. Patient did not have any prodromal constitutional symptoms to suggest a secondary process. Patient is doing well at this time. Clinical suspicion for an element of pulmonary hypertension and uncontrolled sleep apnea adding to anesthesia risk. If patient is able to tolerate room air with ambulation and at rest, can likely be discharged from a pulmonary perspective with outpatient follow-up. Likely not necessary to obtain further work-up as an inpatient if able to tolerate room air 2. DHAVAL Patient has an elevated bicarbonate on chemistries suggestive of obesity hypoventilation syndrome. Patient will need an ABG to confirm, but this could be completed as an outpatient. Clinical suspicion of sleep apnea is not being controlled given patient's 150 pound weight gain. Patient should have a repeat titration polysomnogram as an outpatient. Clinical suspicion the patient would benefit from BiPAP therapy over CPAP 14 cm water. 3. Possible obesity hypoventilation/cor pulmonale Patient should have an echocardiogram. Patient believes this was completed as an outpatient in [place], but records not available for confirmation. Patient would be at high risk for elevated right-sided pressures given body habitus and uncontrolled sleep apnea. Patient would also benefit from a room air ABG as an outpatient to see if obesity hypoventilation is present. Low clinical suspicion for underlying asthma or COPD given history. Inpatient E&M: [id number] Init Hosp L2
[2020-12-10] MEDS: Ferrous Sulfate 325 MG Tablet PO (08:18)
[2020-12-10] MEDS: Escitalopram Oxalate 20 MG Tablet PO (08:18)
[2020-12-10] MEDS: Furosemide 40 MG Tablet PO (08:18)
[2020-12-10] MEDS: Pantoprazole Sodium 20 MG Tablet PO (08:19)
[2020-12-10] MEDS: Lisinopril 10 MG Tablet PO (08:19)
--- NOTE | 2020-12-10 12:22 | DCINST_ITS ---
- Discharge Diagnoses Current Active Problems: Current Active and Chronic Problems Morbid obesity with BMI of 70 and over, adult (Chronic) DHAVAL (obstructive sleep apnea) (Chronic) Anxiety (Chronic) GERD (gastroesophageal reflux disease) (Chronic) HTN (hypertension) (Chronic) You will use the following diet at home:: Cardiac Your food should be the consistency of: Regular Your liquids should be the consistency of: Regular/Thin Call your doctor if you observe: Shortness of breath Allergies/Adverse Reactions: Allergies Iodinated Contrast Media [CONTRASTS] Adverse Reaction (Verified 12/03/20 13:09) Vomiting Medications to take at Discharge Albuterol Aerosols [Ventolin Aerosols] 2.5 mg INHALATION Q2H PRN PRN 12/03/20 Escitalopram Oxalate [Lexapro] 20 mg PO DAILY 12/03/20 Ferrous Sulfate 325 mg PO BIDCM 12/03/20 Furosemide [Lasix] 40 mg PO DAILY 12/03/20 Lisinopril [Zestril] 10 mg PO DAILY 12/03/20 Omeprazole 20 mg PO DAILY 12/03/20 Primary Care Physician: Gerard Gardner MD [Primary Care Provider] - Within 2 Weeks Test Results: Test results from this visit will be discussed in further detail at your follow- up appointment, if applicable. Please Follow Up With: [facility] When: bariatric program. call for appointment. Proposed Discharge Date: 12/10/20
--- NOTE | 2020-12-10 13:29 | PCM.DC.SUM ---
Discharge Date and Diagnosis Date of Admission: 12/09/20 Date of Discharge: 12/10/20 - Primary Discharge Diagnosis Acute Problems: acute bronchospasm. - Secondary Discharge Diagnosis Chronic Problems: Chronic Problems Morbid obesity with BMI of 70 and over, adult (Chronic) DHAVAL (obstructive sleep apnea) (Chronic) Anxiety (Chronic) GERD (gastroesophageal reflux disease) (Chronic) HTN (hypertension) (Chronic) Hospital Course and Treatment [facility] CCM Operations: None Procedures: None Summary of Care Provided: The patient is a 30 year old M presents with a bronchospasm during EGD. EGD was unable to be completed due to this. Patient was brought to the ICU and monitored. Pulmonology was consulted. Patient's course was uncomplicated and patient will be discharged today. Patient likely had bronchospasm may have been obstructive phenomenon that was exacerbated by the anesthesia given the patient's very large body habitus and sleep apnea. Patient advised to follow-up for repeat polysomnogram and due to the patient's large size he also needs weight loss. Discussed with the patient and states that he has established with the [facility] bariatric program. Encouraged him to continue to follow-up for further weight loss. [] - Physical Exam Vitals/I&O's: Vital Signs Temp Pulse Resp BP Pulse Ox 36.8 C 95 18 162/84 H 95 12/10/20 08:00 12/10/20 08:00 12/10/20 08:00 12/10/20 08:00 12/10/20 12:40 Oxygen Flow Rate (L/min) 1 Oxygen Delivery Method Room Air Weight: 283.8 kg Body Mass Index (BMI) 76.1 Intake and Output for Last 24 Hours 12/08/20 12/09/20 12/10/20 23:59 23:59 23:59 Intake Total 743.75 / 893.75 525 / 525 Output Total 1450 / 1450 Balance 743.75 / 893.75 -925 / -925 General: Alert, No apparent distress HEENT: Atraumatic, Normocephalic Oral: Moist Mucosa, No Gingival or Mucosal Lesions/ Ulcerations Neck: No Nodes, Thyroid Normal Size and Texture Lungs: Clear to auscultation, Normal air movement, No rhonchi, No wheeze, No rales Cardiovascular: Regular rate, Regular Rhythm, Normal S1, Normal S2, No murmurs Abdomen: Bowel Sounds Present, Soft, Non Tender, Non-Distended, No Hepato-splenomegaly Extremities: No edema, No Calf Tenderness Microbiology Past 72 Hours 12/08/20 09:08 Interface Orders SARS-CoV-2 Antigen (Rapid) - Final Laboratory Results 12/09/20 16:28: Sodium 142, Potassium 3.7, Chloride 108 H, Carbon Dioxide 32.0, Anion Gap 2 L, BUN 12, Creatinine 0.58 L, Estim Creat Clear Calc 226.56, Est GFR (MDRD) Af Amer 208, Est GFR (MDRD) Non-Af 172, BUN/Creatinine Ratio 20.6 H, Glucose 101, Calcium 8.6 12/09/20 16:28: WBC 8.2, RBC 4.75, Hgb 11.9 L, Hct 39.1 L, MCV 82.3, MCH 25.1 L, MCHC 30.4 L, RDW Std Deviation 50.6 H, RDW Coeff of Melchor 17.0 H, Plt Count 211, MPV 10.9, Immature Gran % (Auto) 0.200, Neut % (Auto) 74.1 H, Lymph % (Auto) 18.4 L, [place] % (Auto) 5.6, Eos % (Auto) 1.3, Baso % (Auto) 0.4, Absolute Neuts (auto) 6.1, Absolute Lymphs (auto) 1.51, Nucleated RBC % 0 12/10/20 03:20: WBC 7.3, RBC 4.67, Hgb 11.7 L, Hct 39.3 L, MCV 84.2, MCH 25.1 L, MCHC 29.8 L, RDW Std Deviation 52.2 H, RDW Coeff of Melchor 17.1 H, Plt Count 206, MPV 10.4, Immature Gran % (Auto) 0.300, Neut % (Auto) 69.6, Lymph % (Auto) 20.7, [place] % (Auto) 7.1, Eos % (Auto) 1.9, Baso % (Auto) 0.4, Absolute Neuts (auto) 5.1, Absolute Lymphs (auto) 1.51, Nucleated RBC % 0 12/10/20 03:20: Sodium 142, Potassium 3.3 L, Chloride 106, Carbon Dioxide 32.0, Anion Gap 4 L, BUN 12, Creatinine 0.58 L, Estim Creat Clear Calc 226.56, Est GFR (MDRD) Af Amer 209, Est GFR (MDRD) Non-Af 173, BUN/Creatinine Ratio 20.7 H, Glucose 115 H, Calcium 8.5 Current Medications Acetaminophen (Acetaminophen 325 Mg Tablet) 650 mg PO Q6H PRN PRN PRN Reason: Pain Score 1-10/Temp > 100.7 F Albuterol Sulfate (Albuterol 2.5 Mg/3 Ml Vial.Neb.) 2.5 mg INHALATION Q2H PRN PRN PRN Reason: SOB/Wheezing Last Admin: 12/09/20 21:09 Dose: 2.5 mg Documented by: Enoxaparin Sodium (Enoxaparin 40 Mg/0.4 Ml Syringe) 40 mg SC DAILY [facility] Last Admin: 12/10/20 08:25 Dose: Not Given Documented by: Escitalopram Oxalate (Escitalopram Oxalate 20 Mg Tablet) 20 mg PO DAILY [facility] Last Admin: 12/10/20 08:18 Dose: 20 mg Documented by: Ferrous Sulfate (Ferrous Sulfate 325 Mg Tablet) 325 mg PO BIDCM [facility] Last Admin: 12/10/20 08:18 Dose: 325 mg Documented by: Furosemide (Furosemide 40 Mg Tablet) 40 mg PO DAILY [facility] Last Admin: 12/10/20 08:18 Dose: 40 mg Documented by: Lisinopril (Lisinopril 10 Mg Tablet) 10 mg PO DAILY [facility] Last Admin: 12/10/20 08:19 Dose: 10 mg Documented by: Melatonin (Melatonin 3 Mg Tablet) 3 mg PO QHS PRN PRN PRN Reason: INSOMNIA Ondansetron HCl (Ondansetron 4 Mg/2 Ml Vial) 4 mg IV Q8H PRN PRN PRN Reason: NAUSEA/VOMITING Pantoprazole Sodium (Pantoprazole Sodium 20 Mg Tablet) 20 mg PO DAILY [facility] Last Admin: 12/10/20 08:19 Dose: 20 mg Documented by: Sodium Chloride (0.9% Normal Saline 250 Ml Iv.Soln.) 250 ml IV UD PRN PRN Reason: Hypotension Sodium Chloride (0.9% Saline Lock 10 Ml Syringe) 10 - 40 ml IV UD PRN PRN Reason: SALINE FLUSH Last Admin: 12/09/20 17:33 Dose: 20 ml Documented by: Discharge Diet: No Restrictions Call your doctor if you observe: Shortness of breath Home Medications: Medications to take at Discharge Albuterol Aerosols [Ventolin Aerosols] 2.5 mg INHALATION Q2H PRN PRN 12/03/20 Escitalopram Oxalate [Lexapro] 20 mg PO DAILY 12/03/20 Ferrous Sulfate 325 mg PO BIDCM 12/03/20 Furosemide [Lasix] 40 mg PO DAILY 12/03/20 Lisinopril [Zestril] 10 mg PO DAILY 12/03/20 Omeprazole 20 mg PO DAILY 12/03/20 Primary Care Physician: Gerard Gardner MD [Primary Care Provider] - Within 2 Weeks Please Follow Up With: [facility] When: bariatric program. call for appointment. Disposition: Home Minutes spent on discharge:: 24 Patient Condition:: Good Medical Necessity - Tobacco Use Smoking Status: Never smoker Tobacco Use: Non-smoker Meaningful Use Info Meaningful Use Diagnoses (Choose all that apply): None applicable OBSV E&M: 60616 Observation care discharge
== END 2020-12-10 13:25 | disposition home or self-care (01) ==
LOC: EN 17:02 → ICU 17:02
PROVIDERS: Admitting Provider Family Medicine; PCP Family Medicine; Referring Provider Surgery
PROC: 0DJ08ZZ Inspection of Upper Intestinal Tract, Via Natural or Artificial Opening Endoscopic (ICD-10-PCS; CPT 43235; principal; 2020-12-09 11:55)
DX: J98.01 Acute bronchospasm (principal); E66.01 Morbid (severe) obesity due to excess calories; G47.33 Obstructive sleep apnea (adult) (pediatric); Z68.45 Body mass index [BMI] 70 or greater, adult; K21.9 Gastro-esophageal reflux disease without esophagitis; I10 Essential (primary) hypertension; F41.9 Anxiety disorder, unspecified; Z79.899 Other long term (current) drug therapy; D50.9 Iron deficiency anemia, unspecified; Z53.09 Procedure and treatment not carried out because of other contraindication
CPT/HCPCS: 43235; 80048; 85025; 87426; 94640; 94660; 96360; 96361; 99218; 99251; C9803; J7120; A4216; G0378; G0379; G0463

== ENCOUNTER 2021-07-15 21:04 | Inpatient (IN) | payer OTHER, SELFPAY ==
[2021-07-15 21:05] VITALS: BP 192/85; PULSE 117; RESP 24; TEMP 38.9; O2SAT 95; BMI 73.0
[2021-07-15 21:08] VITALS: BP 192/85; PULSE 108; RESP 34; TEMP 39; O2SAT 90
--- NOTE | 2021-07-15 21:23 | EKG12_ITS ---
Test Reason : FEVER Blood Pressure : / mmHG Vent. Rate : 105 BPM Atrial Rate : 105 BPM P-R Int : 184 ms QRS Dur : 100 ms QT Int : 366 ms P-R-T Axes : 042 -01 026 degrees QTc Int : 483 ms Sinus tachycardia Otherwise normal ECG Confirmed by JENI GRANT, JULIETA ([id number]), newspaper photo editor HERMELINDO ARRIOLA ([id number]) on 07/19/2021 12:59:22 PM Referred By: LAYLA Confirmed By:JULIETA NGO MD
--- NOTE | 2021-07-15 21:24 | EX.ED.DYSGE1 ---
HPI History of Present Illness Chief Complaint: Fever Informant: patient and spouse/S.O. Onset/Context/Timing Onset: Today Context: Sudden Onset Timing: Continuous Quality: Fever, generalized weakness and shortness of breath Location: Respiratory Current Severity: Mild Maximum Severity: Moderate Worsened by: Dyspnea on exertion Relieved by: Nothing Associated Symptoms Associated Symptoms: Myalgias Narrative Narrative: Patient is a 31-year-old male with history of obstructive sleep apnea, morbid obesity, GERD and hyper tension. Patient is compliant with his CPAP mask. He is not vaccinated. He presents with fever, shortness of breath and mild congestion. Onset of symptoms today. Patient states he was exposed to individuals had Covid last week. He denies history of PE or DVT. He does have venous stasis dermatitis of his lower extremities. He denies headache. He denies visual, ocular auditory symptoms. He denies chest discomfort. He denies nausea, vomiting or diarrhea. He denies dysuria, frequency, urgency or hematuria. [facility] Medical History Anxiety HTN (hypertension) Sleep apnea Home Medications albuterol sulfate 2.5 mg INHALATION Q2H PRN PRN 12/03/20 [History Last Taken Unknown] escitalopram oxalate 20 mg PO DAILY 12/03/20 [History Last Taken Unknown] ferrous sulfate 325 mg PO BIDCM 12/03/20 [History Last Taken Unknown] furosemide 40 mg PO DAILY 12/03/20 [History Last Taken Unknown] lisinopril 10 mg PO DAILY 12/03/20 [History Last Taken Unknown] omeprazole 20 mg PO DAILY 12/03/20 [History Last Taken Unknown] Allergy/AdvReac Type Severity Reaction Status Date / Time Iodinated Contrast Media AdvReac Vomiting Verified 07/15/21 21:05 [CONTRASTS] Social History (Updated 07/15/21 @ 21:[address] Kojo Richardson MD) household members: significant other Smoking Status: Never smoker alcohol intake: never substance use type: does not use ROS ROS ED Constitutional Constitutional ED: Reports chills and fever(s); Denies subjective or sweats Eyes Eyes: Denies blurry vision, change in vision or diplopia ENT ENT ED: Reports rhinorrhea; Denies ear pain or sore throat Cardiovascular Cardiovascular: Denies chest pain, orthopnea, palpitations, paroxysmal nocturnal dyspnea or racing heartbeat Respiratory/Chest Respiratory/Chest: Reports cough, dyspnea and dyspnea on exertion; Denies orthopnea, paroxysmal nocturnal dyspnea or sputum Gastrointestinal Gastrointestinal: Denies abdominal pain, constipation, diarrhea, nausea or vomiting Genitourinary Genitourinary ED: Denies dysuria or urinary frequency Musculoskeletal Musculoskeletal: Reports myalgias; Denies arthralgias, back pain or neck pain Integumentary Denies rash Neurologic Neurologic: Reports weakness; Denies headache(s) or paresthesias Endocrine Endocrinology: Denies polydipsia, polyphagia or polyuria Hematologic/Lymphatic Hematologic/Lymphatic: Denies easy bleeding or easy bruising Allergic/Immunologic Allergic/Immunologic ED: Denies urticaria EXAM Physical Exam Const Vital Signs: 07/15/21 21:05 07/15/21 21:08 07/15/21 21:22 Temperature 102.1 F H 102.2 F H Temperature Source Oral Oral Pulse Rate 117 H 108 H Respiratory Rate 24 H 34 H Respiratory Effort Normal Non-Labored Respiratory Pattern Normal Blood Pressure 192/85 H 192/85 H Blood Pressure Mean 120 120 Pulse Ox 95 90 Oxygen Delivery Method Room Air Room Air Positive well nourished, well developed and obese General Appearance ED: well developed and other Patient is diaphoretic. He appears ill. He is tachypneic and tachycardic. ; Negative for NAD Nutritional Appearance: obese HEENT Reports dry mucous membranes HEENT Narrative: Head is atraumatic normocephalic. Nares patent. Ears normal. Mouth ED: Yes dry mucous membranes Mouth: dry mucous membranes Eyes PERRL and EOMs intact bilaterally General Eye ED: Negative for pale conjunctiva or scleral icterus Neck no lymphadenopathy, supple and no JVD Neck Narrative: Trachea is midline. There is no inspiratory expiratory stridor. Resp normal respiratory effort and clear to auscultation bilaterally Cardio regular rhythm, S1 normal heart sound, S2 normal heart sound and no murmurs Rate: tachycardic GI normal to inspection, nondistended, normoactive bowel sounds and non-tender Palpation: soft Back/Spine no CVA tenderness Thoracic Spine / Upper Back: Negative for paraspinal muscle tenderness Extremity Negative for normal to inspection Extremity Narrative: Patient has venous stasis dermatitis and ulcer. General Extremety ED: Yes edema; Negative for tenderness General Extremity: edema Neuro oriented x3, CN's II-XII intact bilaterally and no sensory deficits noted Sensorium / Orientation: alert Psych mental status grossly normal Skin skin turgor normal Skin Narrative: Anterior right leg. This is due to venous stasis. Patient has a dressing left leg due to venous stasis ulcer and dermatitis. Wounds: wounds noted MDM MDM MDM Narrative Medical decision making narrative: Patient presents with hypoxia. Suspect Covid. Will need to rule out bacterial pneumonia. Patient took antipyretic prior to arrival. He took appropriate dose. Since pulse ox was 83% on room air he probably will require admission. Lab Data Attestation: I reviewed the patient's lab results. Labs: Laboratory Results - last 24 hr 07/15/21 07/15/21 07/15/21 21:40 21:40 21:40 WBC 12.7 H RBC 4.64 Hgb 12.3 L Hct 39.2 L MCV 84.5 MCH 26.5 L MCHC 31.4 L RDW Std Deviation 48.2 H RDW Coeff of Melchor 15.8 H Plt Count 191 MPV 11.0 Immature Gran % (Auto) 0.600 Neut % (Auto) 84.6 H Lymph % (Auto) 7.9 L [place] % (Auto) 6.2 Eos % (Auto) 0.5 Baso % (Auto) 0.2 Absolute Neuts (auto) 10.8 H Absolute Lymphs (auto) 1.00 Nucleated RBC % 0 Sodium 136 Potassium 3.7 Chloride 103 Carbon Dioxide 29.0 Anion Gap 4 L BUN 10 Creatinine 0.68 L Estim Creat Clear Calc 191.47 Est GFR (MDRD) Af Amer 175 Est GFR (MDRD) Non-Af 144 BUN/Creatinine Ratio 14.8 Glucose 127 H Lactic Acid 1.8 Calcium 8.8 Total Bilirubin 0.60 AST 33 ALT 40 Alkaline Phosphatase 103 Total Protein 8.1 Albumin 3.1 L Globulin 5.0 H Albumin/Globulin Ratio 0.6 L Covid test is negative. Since his Covid test is negative and he has 4 sirs criteria will treat for commune acquired pneumonia with sepsis. Radiography Chest X-Ray - ED: 1 View, Read by ED Physician (Single view portable chest x-ray interpreted by me at 2146. There is no infiltrate. Limited inspiratory volume. Cardiac silhouette size normal. Osseous structures are normal. There is no effusion.), No Acute Disease and Cardiomegaly Diagnostic Testing: Radiology Impression Chest X-Ray 07/15/21 21:35 IMPRESSION: Cardia megaly with interstitial edema. Electronically Signed: Stephan Whitt MD at 21:52 EDT Tel , Service support , Theology report was read. Patient has a temperature of 102.2. He is tachycardic, tachypneic and hypoxic. Suspect the interstitial edema is actually interstitial pneumonia and most likely represents Covid. EKG Initial EKG: Attestation: I personally reviewed and interpreted this EKG as follows: Interpretation: Sinus Tachycardia (Ventricular 105. TX interval is 184 ms. Cures duration 100 ms. QT duration 366 ms. [place] is normal. Other than the tachycardia the EKG is normal.) Discharge Plan Dx/Rx/DC Orders Clinical Impression: Bilateral interstitial pneumonia, Acute respiratory failure with hypoxia, Sepsis Disposition Disposition: Acute Care Hospital [facility]
[2021-07-15 21:25] VITALS: PULSE 103; RESP 30; O2SAT 94
--- NOTE | 2021-07-15 21:35 | RAD_ITS ---
INDICATION: cough EXAMINATION/TECHNIQUE: X-RAY - XR Chest 1 View COMPARISON: None. FINDINGS: Increased interstitial markings. The heart is enlarged. No pleural effusion or pneumothorax. No acute osseous abnormalities. RAD/Chest 1 View (Portable) IMPRESSION: Cardia megaly with interstitial edema. Electronically Signed: Stephan Whitt MD at 21:52 EDT Tel , Service support ,
[2021-07-15 22:02] LABS: Absolute Neutrophil Count 10.8 X10^3/uL (2.0-7.7); Basophil# 0.02 X10^3/uL; Basophil% 0.2 % (0-1); Eosinophil# 0.06 X10^3/uL; Eosinophils% 0.5 % (0-5); Hematocrit 39.2 % (40-54); Hemoglobin 12.3 g/dL (13.0-16.5); Lymphocyte % 7.9 % (19-41); Mean Corp Hgb Conc 31.4 g/dL (32-36); Mean Corpuscular Hgb 26.5 pg (27.0-32.0); Mean Corpuscular Volume 84.5 fL (80-94); Monocyte# 0.79 X10^3/uL; Monocyte% 6.2 % (0-10); NRBC Flagged by Analyzer 0 % (0-5); Neutrophil # 10.75 X10^3/uL (2.7-7.7); Neutrophil % 84.6 % (47-70); Platelet Count 191 K/mm3 (150-450); RBC Distribution Width CV 15.8 % (11.6-14.6); RBC Distribution Width SD 48.2 fl (35.1-43.9); Red Blood Count 4.64 M/mm3 (4.6-6.2); White Blood Count 12.7 K/mm3 (4.4-11.0)
[2021-07-15 22:08] VITALS: BP 130/76; PULSE 99; RESP 31; TEMP 38.2; O2SAT 94
[2021-07-15 22:30] LABS: Lactic Acid 1.8 mmol/L (0.4-1.9)
[2021-07-15 22:31] LABS: ALB/GLOB Ratio 0.6 RATIO (0.9-2.4); AST(SGOT) 33 U/L (15-37); Alanine Aminotransfer ALT/SGPT 40 U/L (16-61); Albumin, Serum 3.1 g/dL (3.2-5.0); Alkaline Phosphatase 103 U/L (45-117); Anion Gap 4 (5-15); BUN 10 mg/dL (7-18); BUN/Creat Ratio 14.8 RATIO (10-20); Calcium,Total 8.8 mg/dL (8.5-10.1); Chloride 103 mmol/L (98-107); Creatinine, Serum 0.68 mg/dL (0.70-1.30); EST Glomerular Filtration Rate 144 mL/min (>60); Est Glom Filt Rate - Afr Amer 175 mL/min (>60); Estimated Creatinine Clearance 191.47 ml/min; Glucose 127 mg/dL (74-106); Potassium 3.7 mmol/L (3.5-5.1); Protein, Total 8.1 g/dL (6.4-8.2); Sodium Level 136 mmol/L (136-145)
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
[2021-07-15] MEDS: dexAMETHasone 10 MG/ML Vial IV (22:53)
[2021-07-15 23:00] VITALS: BP 143/73; PULSE 96; RESP 32; TEMP 37.7; O2SAT 96
[2021-07-15 23:18] LABS: AST(SGOT) 34 U/L (15-37); Alanine Aminotransfer ALT/SGPT 40 U/L (16-61); Alkaline Phosphatase 104 U/L (45-117); Bilirubin, Direct 0.16 mg/dL (0.00-0.30); Ferritin 180 ng/mL (26-388); Globulin 5.2 g/dL (2.2-4.2); LDH 241 U/L (87-241); Protein, Total 8.2 g/dL (6.4-8.2)
[2021-07-15 23:34] LABS: BNP,B-Type NATRIURETIC PEPTIDE 18.8 pg/mL (0-100)
[2021-07-15 23:43] LABS: Procalcitonin 0.36 ng/mL (0.00-0.09)
[2021-07-16] VITALS (13 sets, daily range): BP systolic 138–154; BP diastolic 60–89; PULSE 77–95; RESP 18–28; TEMP 36.6–36.9; O2SAT 87–96
[2021-07-16 00:40] LABS: Probe Check PASS; Specimen Processing Control PASS
[2021-07-16] MEDS: Enoxaparin 40 MG/0.4 ML Syringe SC ×2 (01:07→08:25)
[2021-07-16] MEDS: 0.9% Normal Saline 1,000 ML 100 ML IV (01:07)
--- NOTE | 2021-07-16 01:56 | CT_ITS ---
EXAM: CT Angiography Chest Without and With Intravenous Contrast CLINICAL INDICATION: 31 years old, Male; Suspect PE, hypoxia, suspect COVID TECHNIQUE: Helically acquired angiography images were obtained of the chest without and with intravenous contrast. This CT exam was performed using one or more of the following dose reduction techniques: automated exposure control, adjustment of the mA and/or kV according to patient size, and/or use of iterative reconstruction technique. This report was created using [employer] report generation technology. MIP reconstructed images were created and reviewed. CONTRAST: IV 100mL [id number] COMPARISON: None. FINDINGS: Artifacts: Scatter artifact likely related to patient''s body habitus. Limitations: Suboptimal opacification of the pulmonary arteries. Pulmonary arteries: No central or segmental pulmonary embolism. The distal pulmonary arteries cannot be evaluated due to poor opacification. Aorta: Unremarkable. Normal in caliber. No evidence of dissection. Great vessels of aortic arch: Unremarkable. Normal in caliber. No evidence of dissection. Lungs and pleural spaces: Unremarkable. No mass. No consolidation or edema. No pleural effusion or thickening. No pneumothorax. Heart: Unremarkable. Heart size is normal. No pericardial effusion. No signs of right heart strain, ratio of right ventricle to left ventricle measures less than 1. Mediastinum: Unremarkable. No mediastinal or hilar adenopathy. Esophagus is unremarkable. No hiatal hernia. Thyroid: Unremarkable. No thyroid lesions. Bones/joints: Unremarkable. No suspicious lytic or blastic abnormality. CT/CTA Chest W/WO Contrast IMPRESSION: No central or segmental pulmonary embolism. The distal pulmonary arteries cannot be evaluated due to poor opacification. ASSESSMENT: ABNORMAL report - There are abnormal findings in this report which may be related or unrelated to the reason for the exam. Electronically Signed: Jose Davis MD at 6:19 EDT Tel , Service support ,
[2021-07-16] MEDS: Ondansetron 4 MG/2 ML Vial IV (04:02)
[2021-07-16 06:18] LABS: Absolute Neutrophil Count 9.2 X10^3/uL (2.0-7.7); Basophil# 0.01 X10^3/uL; Basophil% 0.1 % (0-1); Hematocrit 41.7 % (40-54); Lymphocyte % 9.6 % (19-41); Mean Corp Hgb Conc 31.2 g/dL (32-36); Mean Corpuscular Hgb 26.4 pg (27.0-32.0); Mean Corpuscular Volume 84.8 fL (80-94); Mean Platelet Vol. 10.9 fl (6.2-12.0); Monocyte# 0.18 X10^3/uL; Monocyte% 1.7 % (0-10); NRBC Flagged by Analyzer 0 % (0-5); Neutrophil # 9.19 X10^3/uL (2.7-7.7); Neutrophil % 88.2 % (47-70); Platelet Count 190 K/mm3 (150-450); RBC Distribution Width CV 15.9 % (11.6-14.6); RBC Distribution Width SD 48.9 fl (35.1-43.9); Red Blood Count 4.92 M/mm3 (4.6-6.2); White Blood Count 10.4 K/mm3 (4.4-11.0)
[2021-07-16 06:52] LABS: ALB/GLOB Ratio 0.6 RATIO (0.9-2.4); AST(SGOT) 31 U/L (15-37); Alanine Aminotransfer ALT/SGPT 38 U/L (16-61); Alkaline Phosphatase 107 U/L (45-117); Anion Gap 2 (5-15); BUN 8 mg/dL (7-18); BUN/Creat Ratio 14.9 RATIO (10-20); Calcium,Total 8.7 mg/dL (8.5-10.1); Chloride 106 mmol/L (98-107); Creatinine, Serum 0.54 mg/dL (0.70-1.30); EST Glomerular Filtration Rate 189 mL/min (>60); Est Glom Filt Rate - Afr Amer 228 mL/min (>60); Estimated Creatinine Clearance 241.11 ml/min; Globulin 5.3 g/dL (2.2-4.2); Glucose 147 mg/dL (74-106); Potassium 3.6 mmol/L (3.5-5.1); Protein, Total 8.3 g/dL (6.4-8.2); Sodium Level 139 mmol/L (136-145)
--- NOTE | 2021-07-16 07:43 | PCM.PN.HOSP ---
Subjective Subjective Patient seen his breathing is much improved. Both his rapid and PCR SARS-CoV-2 assay came back negative Objective Data Objective Data Vital Signs: Vital Signs Temp Pulse Resp BP Pulse Ox 98.4 F 81 20 H 143/89 H 95 07/16/21 05:05 07/16/21 07:32 07/16/21 05:05 07/16/21 05:05 07/16/21 05:05 Oxygen Flow Rate (L/min) 2 Oxygen Delivery Method Nasal Cannula Weight: 197.313 kg Body Mass Index (BMI) 73.0 Intake & Output: Intake and Output for Last 24 Hours 07/14/21 07/15/21 07/16/21 23:59 23:59 23:59 Intake Total 50 / 50 255 / 255 Balance 50 / 50 255 / 255 Lab / Micro Data Result Diagrams: 07/16/21 06:09 07/16/21 06:09 Labs: Laboratory Results - last 24 hr 07/15/21 21:40: WBC 12.7 H, RBC 4.64, Hgb 12.3 L, Hct 39.2 L, MCV 84.5, MCH 26.5 L, MCHC 31.4 L, RDW Std Deviation 48.2 H, RDW Coeff of Melchor 15.8 H, Plt Count 191, MPV 11.0, Immature Gran % (Auto) 0.600, Neut % (Auto) 84.6 H, Lymph % (Auto) 7.9 L, [place] % (Auto) 6.2, Eos % (Auto) 0.5, Baso % (Auto) 0.2, Absolute Neuts (auto) 10.8 H, Absolute Lymphs (auto) 1.00, Nucleated RBC % 0 07/15/21 21:40: Sodium 136, Potassium 3.7, Chloride 103, Carbon Dioxide 29.0, Anion Gap 4 L, BUN 10, Creatinine 0.68 L, Estim Creat Clear Calc 191.47, Est GFR (MDRD) Af Amer 175, Est GFR (MDRD) Non-Af 144, BUN/Creatinine Ratio 14.8, Glucose 127 H, Calcium 8.8, Total Bilirubin 0.60, AST 33, ALT 40, Alkaline Phosphatase 103, Total Protein 8.1, Albumin 3.1 L, Globulin 5.0 H, Albumin/Globulin Ratio 0.6 L 07/15/21 21:40: Lactic Acid 1.8 07/15/21 21:40: Ferritin 180, Total Bilirubin 0.50, Direct Bilirubin 0.16, AST 34, ALT 40, Alkaline Phosphatase 104, Lactate Dehydrogenase 241, C-React Prot Ext Range 30.40 H, Total Protein 8.2, Albumin 3.0 L, Globulin 5.2 H 07/15/21 21:40: B-Natriuretic Peptide 18.8 07/15/21 22:51: COVID-19 (JANEY) Negative 07/15/21 23:00: D-Dimer Quant (PE/DVT) 1.10 H* 07/15/21 23:00: Procalcitonin 0.36 H 07/16/21 06:09: WBC 10.4, RBC 4.92, Hgb 13.0, Hct 41.7, MCV 84.8, MCH 26.4 L, MCHC 31.2 L, RDW Std Deviation 48.9 H, RDW Coeff of Melchor 15.9 H, Plt Count 190, MPV 10.9, Immature Gran % (Auto) 0.400, Neut % (Auto) 88.2 H, Lymph % (Auto) 9.6 L, [place] % (Auto) 1.7, Eos % (Auto) 0.0, Baso % (Auto) 0.1, Absolute Neuts (auto) 9.2 H, Absolute Lymphs (auto) 1.00, Nucleated RBC % 0 07/16/21 06:09: Sodium 139, Potassium 3.6, Chloride 106, Carbon Dioxide 31.0, Anion Gap 2 L, BUN 8, Creatinine 0.54 L, Estim Creat Clear Calc 241.11, Est GFR (MDRD) Af Amer 228, Est GFR (MDRD) Non-Af 189, BUN/Creatinine Ratio 14.9, Glucose 147 H, Calcium 8.7, Total Bilirubin 0.40, AST 31, ALT 38, Alkaline Phosphatase 107, Total Protein 8.3 H, Albumin 3.0 L, Globulin 5.3 H, Albumin/Globulin Ratio 0.6 L Micro: Microbiology 07/15/21 22:51 Mucosa - Nasopharyngeal Respiratory Panel (PCR) - Final 07/15/21 21:52 Nasal Secretion SARS-CoV-2 Antigen (Rapid) - Final Radiography Diagnostic Testing: Radiology Impression Chest X-Ray 07/15/21 21:35 IMPRESSION: Cardia megaly with interstitial edema. Electronically Signed: Stephan Whitt MD at 21:52 EDT Tel , Service support , Chest CTA 07/16/21 01:56 IMPRESSION: No central or segmental pulmonary embolism. The distal pulmonary arteries cannot be evaluated due to poor opacification. ASSESSMENT: ABNORMAL report - There are abnormal findings in this report which may be related or unrelated to the reason for the exam. Electronically Signed: Jose Davis MD at 6:19 EDT Tel , Service support , Physical Exam Narrative GENERAL: cooperative HEENT: Atraumatic; EYES; Anicteric, Normal Conjunctiva NECK; supple, normal thyroid, RESPIRATORY: Diminished to auscultation CARDIOVASCULAR: Regular S1 S2, GI: soft, normoactive bowel sounds, : No Renal angle tenderness; EXTREMITIES: No edema, no clubbing, MUSCULOSKELETAL: no muscle waisting NEURO: Awake; no lateralizing signs. SKIN: No Rash PSYCH; Flat affect Assessment & Plan Assessment/Plan (1) Bilateral interstitial pneumonia: (2) Hypoxia: PLAN: Patient is a 31-year-old gentleman with morbid obesity with BMI of 52 with recent exposure to COVID-19 at work who presented with shortness of breath. Patient was found to have elevated D-dimer as well as elevated CRP. CT of the chest obtained was negative for pulmonary embolism. No consolidation was found. Patient rapid antigen test came back negative however given his exposure he was placed in isolation and admitted for subsequent evaluation 1. Acute hypoxic respiratory insufficiency ?Suspected to be viral syndrome. Currently being worked up for SARS-CoV-2 infection. There was no evidence of pneumonia on CAT scan (bilateral pneumonia ruled out). Both his rapid Covid antigen test as well as PCR came back negative. Clinically improved plan is for patient to be discharged home 2. Morbid obesity with BMI 52.9 ?Weight loss advised 3. Anemia ruled out -patient hemoglobin is 13 there is no evidence of chronic anemia 4. GERD ?Patient is on PPI 5. Hypertension - Blood pressure controlled, home medications continued with dose adjustment as needed 6. Chronic venous stasis 7. Depression with anxiety 8. Obstructive sleep apnea 9. DVT prophylaxis Charges/Coding Visit Charges Inpatient E&M: 38274 Subs Hosp L2
[2021-07-16] MEDS: Escitalopram Oxalate 20 MG Tablet PO (08:24)
[2021-07-16] MEDS: Lisinopril 20 MG Tablet PO (08:24)
[2021-07-16] MEDS: Pantoprazole Sodium 20 MG Tablet PO (08:24)
[2021-07-16] MEDS: Furosemide 40 MG Tablet PO (08:24)
[2021-07-16] MEDS: dexAMETHasone 4 MG/ML Vial 6 MG IV (08:25)
[2021-07-16] MEDS: Ferrous Sulfate 325 MG Tablet PO (08:25)
[2021-07-16] MEDS: Metoprolol(XL)Succ 25 MG Tablet PO (08:25)
[2021-07-16] MEDS: 0.9% Saline Lock 10 ML Syringe IV (08:28)
--- NOTE | 2021-07-16 08:36 | CPS ---
Talked to patient about home CPAP. Patient stated that he's not sure if he has a way of getting his machine here to use. Patient wishes to just wear supplemental oxygen at night in its place versus using one of our machines.
--- NOTE | 2021-07-16 09:43 | CASEMGMT ---
LISA IBRAHIM Assessment: Face to Face with pt for initial transition planning/care coordination assessment. LISA IBRAHIM introduced self and role at [facility], pt voices understanding and consents to assessment. Pt is A/O x4 and answers all questions appropriately at this time. Pt lying in bed with O2 on in no distress. Care providers, pharmacy, and demographics verified/updated. Admitting Dx: Suspected COVID PNA, hypoxia PCP: Kendra Specialists: Pt denies. Preferred Pharmacy: [facility] Insurance: MMO Prescription Benefit: yes LW/HPOA: Pt denies having LW/DPOA and denies need for info regarding AD. LNOK: Tessa Zamorano, Living Arrangements: Pt lives with and 's adult cousin in a two story house with one step to enter. Pt reports being I in ADL's and denies concerns at home. Transportation: Pt states he drives and denies concerns with transportation. DME/HHC: Pt states he has a CPAP at home. States he used [facility] prior but has not gotten any items recently. Pt denies hx of HHC. Provided pt with a local in network list of DME companies in case he should need O2 on dc. Pt has no preference of DME company. 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 Pt denies use of alcohol, cigarettes, street drugs or illegal drugs. Pt states no concerns with going home at time of dc. Pt states no further concerns/needs. CM to follow. Advised pt to ask CM if any further question/concerns/needs arise, voices understanding. Pt Goal: Home Plan: Home
--- NOTE | 2021-07-16 10:49 | DS.PCM_ITS ---
Providers Date of Admission: 07/15/21 Primary Care Physician: Dr. Gerard Gardner MD Reason For Visit: SUSPECTED COVID PNA, HYPOXIA Diagnosis Discharge Diagnosis (1) Bilateral interstitial pneumonia: Status: Acute Code(s): J84.9 - Interstitial pulmonary disease, unspecified (2) Hypoxia: Status: Acute Code(s): R09.02 - Hypoxemia Medications at Discharge Home Medications albuterol sulfate 2.5 mg INHALATION Q2H PRN PRN 12/03/20 escitalopram oxalate 20 mg PO QHS 12/03/20 ferrous sulfate 325 mg PO BIDCM 12/03/20 furosemide 40 mg PO DAILY 12/03/20 lisinopril 20 mg PO QHS 12/03/20 omeprazole 20 mg PO QHS 12/03/20 azithromycin [Zithromax] 500 mg PO DAILY 3 Days #3 tab 07/16/21 cholecalciferol (vitamin D3) 1,250 mcg PO FR 07/16/21 metoprolol succinate 25 mg PO DAILY 07/16/21 Hospital Course Summary of Care Provided Minutes Spent on Discharge: 35 Hospital Course: Patient is a 31-year-old gentleman with morbid obesity with BMI of 52 with recent exposure to COVID-19 at work who presented with shortness of breath. Patient was found to have elevated D-dimer as well as elevated CRP. CT of the chest obtained was negative for pulmonary embolism. No consolidation was found. Patient rapid antigen test came back negative however given his exposure he was placed in isolation and admitted for subsequent evaluation 1. Acute hypoxic respiratory insufficiency ?Suspected to be secondary to viral syndrome. Currently being worked up for SARS-CoV-2 infection. There was no evidence of pneumonia on CAT scan (bilateral pneumonia ruled out). Both his rapid Covid antigen test as well as PCR came back negative. Clinically improved plan is for patient to be discharged home 2. Morbid obesity with BMI 52.9 ?Weight loss advised 3. Anemia ruled out -patient hemoglobin is 13 there is no evidence of chronic anemia 4. GERD ?Patient is on PPI 5. Hypertension - Blood pressure controlled, home medications continued with dose adjustment as needed 6. Chronic venous stasis 7. Depression with anxiety 8. Obstructive sleep apnea 9. DVT prophylaxis Physical Exam Narrative GENERAL: cooperative HEENT: Atraumatic; EYES; Anicteric, Normal Conjunctiva NECK; supple, normal thyroid, RESPIRATORY: Diminished to auscultation CARDIOVASCULAR: Regular S1 S2, GI: soft, normoactive bowel sounds, : No Renal angle tenderness; EXTREMITIES: No edema, no clubbing, MUSCULOSKELETAL: no muscle waisting NEURO: Awake; no lateralizing signs. SKIN: No Rash PSYCH; Flat affect Weight / BMI Weight Weight: 197.313 kg Body Mass Index (BMI) 73.0 ABG / Lab / Microbiology Data Result Diagrams: 07/16/21 06:09 07/16/21 06:09 Laboratory: Laboratory Results - last 24 hr 07/15/21 21:40: WBC 12.7 H, RBC 4.64, Hgb 12.3 L, Hct 39.2 L, MCV 84.5, MCH 26.5 L, MCHC 31.4 L, RDW Std Deviation 48.2 H, RDW Coeff of Melchor 15.8 H, Plt Count 191, MPV 11.0, Immature Gran % (Auto) 0.600, Neut % (Auto) 84.6 H, Lymph % (Auto) 7.9 L, [place] % (Auto) 6.2, Eos % (Auto) 0.5, Baso % (Auto) 0.2, Absolute Neuts (auto) 10.8 H, Absolute Lymphs (auto) 1.00, Nucleated RBC % 0 07/15/21 21:40: Sodium 136, Potassium 3.7, Chloride 103, Carbon Dioxide 29.0, Anion Gap 4 L, BUN 10, Creatinine 0.68 L, Estim Creat Clear Calc 191.47, Est GFR (MDRD) Af Amer 175, Est GFR (MDRD) Non-Af 144, BUN/Creatinine Ratio 14.8, Glucose 127 H, Calcium 8.8, Total Bilirubin 0.60, AST 33, ALT 40, Alkaline Phosphatase 103, Total Protein 8.1, Albumin 3.1 L, Globulin 5.0 H, Albumin/Globulin Ratio 0.6 L 07/15/21 21:40: Lactic Acid 1.8 07/15/21 21:40: Ferritin 180, Total Bilirubin 0.50, Direct Bilirubin 0.16, AST 34, ALT 40, Alkaline Phosphatase 104, Lactate Dehydrogenase 241, C-React Prot Ext Range 30.40 H, Total Protein 8.2, Albumin 3.0 L, Globulin 5.2 H 07/15/21 21:40: B-Natriuretic Peptide 18.8 07/15/21 22:51: COVID-19 (JANEY) Negative 07/15/21 23:00: D-Dimer Quant (PE/DVT) 1.10 H* 07/15/21 23:00: Procalcitonin 0.36 H 07/16/21 06:09: WBC 10.4, RBC 4.92, Hgb 13.0, Hct 41.7, MCV 84.8, MCH 26.4 L, MCHC 31.2 L, RDW Std Deviation 48.9 H, RDW Coeff of Melchor 15.9 H, Plt Count 190, MPV 10.9, Immature Gran % (Auto) 0.400, Neut % (Auto) 88.2 H, Lymph % (Auto) 9.6 L, [place] % (Auto) 1.7, Eos % (Auto) 0.0, Baso % (Auto) 0.1, Absolute Neuts (auto) 9.2 H, Absolute Lymphs (auto) 1.00, Nucleated RBC % 0 07/16/21 06:09: Sodium 139, Potassium 3.6, Chloride 106, Carbon Dioxide 31.0, Anion Gap 2 L, BUN 8, Creatinine 0.54 L, Estim Creat Clear Calc 241.11, Est GFR (MDRD) Af Amer 228, Est GFR (MDRD) Non-Af 189, BUN/Creatinine Ratio 14.9, Glucose 147 H, Calcium 8.7, Total Bilirubin 0.40, AST 31, ALT 38, Alkaline Phosphatase 107, Total Protein 8.3 H, Albumin 3.0 L, Globulin 5.3 H, Albumin/Globulin Ratio 0.6 L Microbiology: Microbiology 07/16/21 08:20 Urine, Clean Catch Legionella Antigen - Final 07/16/21 08:20 Urine, Clean Catch Streptococcus pneumoniae Antigen (M - Final 07/15/21 22:51 Mucosa - Nasopharyngeal Respiratory Panel (PCR) - Final 07/15/21 21:52 Nasal Secretion SARS-CoV-2 Antigen (Rapid) - Final Radiography Diagnostic Testing: Radiology Impression Chest X-Ray 07/15/21 21:35 IMPRESSION: Cardia megaly with interstitial edema. Electronically Signed: Stephan Whitt MD at 21:52 EDT Tel , Service support , Chest CTA 07/16/21 01:56 IMPRESSION: No central or segmental pulmonary embolism. The distal pulmonary arteries cannot be evaluated due to poor opacification. ASSESSMENT: ABNORMAL report - There are abnormal findings in this report which may be related or unrelated to the reason for the exam. Electronically Signed: Jose Davis MD at 6:19 EDT Tel , Service support , D/C Instructions Discharge Diet: No restrictions Discharge Activity: Return to Normal Activity Call your doctor if you observe: Fever of 101 or Higher, Shortness of breath, Fainting spells and Chest pain Meaningful Use Info Meaningful Use Diagnoses (Choose all that apply): None applicable Discharge Plan Admission Admit Date/Time: 07/15/21 22:44 Attending Provider: Clint Pastor Primary Care Provider: Gerard Gardner Discharge Orders/Prescriptions Prescriptions: New azithromycin [Zithromax] 500 mg tablet 500 mg PO DAILY 3 Days Qty: 3 RF: 0 Continued furosemide 40 MG tablet 40 mg PO DAILY RF: 0 albuterol sulfate 2.5 MG/3 ML solution for nebulization 2.5 mg INHALATION Q2H PRN PRN (Reason: Sob &/Or Wheezing) RF: 0 ferrous sulfate 325 MG tablet 325 mg PO BIDCM RF: 0 lisinopril 10 MG tablet 20 mg PO QHS RF: 0 omeprazole 20 MG capsule,delayed release(DR/EC) 20 mg PO QHS RF: 0 escitalopram oxalate 20 MG tablet 20 mg PO QHS RF: 0 metoprolol succinate 25 mg tablet extended release 24 hr 25 mg PO DAILY RF: 0 cholecalciferol (vitamin D3) 1,250 mcg (50,000 unit) capsule 1,250 mcg PO FR RF: 0 Referrals / Follow Up: Gerard Gardner MD [Primary Care Provider] - Disposition Disposition (needs filled in before D/C Order can be placed): Home, Self Care Charges/Coding Visit Charges Inpatient E&M: 47832 Disch Hosp
--- NOTE | 2021-07-16 11:58 | PHA.DC.MR ---
Pharmacy Service has performed discharge medication reconciliation for this patient due to patient being in covid precautions. Home Medications albuterol sulfate 2.5 mg INHALATION Q2H PRN PRN 12/03/20 escitalopram oxalate 20 mg PO QHS 12/03/20 ferrous sulfate 325 mg PO BIDCM 12/03/20 furosemide 40 mg PO DAILY 12/03/20 lisinopril 20 mg PO QHS 12/03/20 omeprazole 20 mg PO QHS 12/03/20 azithromycin [Zithromax] 500 mg PO DAILY 3 Days #3 tab 07/16/21 cholecalciferol (vitamin D3) 1,250 mcg PO FR 07/16/21 metoprolol succinate 25 mg PO DAILY 07/16/21 The patient's discharge medication list was reviewed for discrepancies and discrepancies were resolved.
--- NOTE | 2021-07-16 12:56 | CASEMGMT ---
Pt qualified for home O2 with exertion. Faxed referral to [facility] [place]. TC to Radha to make aware and pt given tank from stock.
== END 2021-07-16 15:03 | disposition home or self-care (01) | DRG 197 ==
LOC: ED 22:31 → MS3 23:24
PROVIDERS: Admitting Provider Family Medicine; Emergency Provider Emergency Medicine; PCP Family Medicine; Visit Provider Internal Medicine
DX: J84.9 Interstitial pulmonary disease, unspecified (principal); E66.2 Morbid (severe) obesity with alveolar hypoventilation; Z68.43 Body mass index [BMI] 50.0-59.9, adult; R09.02 Hypoxemia; Z20.822 Contact with and (suspected) exposure to COVID-19; I89.0 Lymphedema, not elsewhere classified; I10 Essential (primary) hypertension; K21.9 Gastro-esophageal reflux disease without esophagitis; F32.9 Major depressive disorder, single episode, unspecified; F41.9 Anxiety disorder, unspecified; Z79.899 Other long term (current) drug therapy
CPT/HCPCS: 36415; 71045; 71275; 80053; 80076; 82728; 83605; 83615; 83880; 84145; 85025; 85379; 86140; 87040; 87426; 87449; 87633; 87635; 93005; 99251; 99285; J7030; Q9967; U0005; A4216; G0463; J0696; J2405; U0003

== ENCOUNTER 2023-08-23 09:00 | Observation (INO) | payer OTHER, SELFPAY ==
[2023-08-23] VITALS (7 sets, daily range): BP systolic 128–147; BP diastolic 65–86; PULSE 78–118; RESP 14–16; TEMP 36.4–37.3; O2SAT 94–99; BMI 77.8
--- NOTE | 2023-08-23 09:23 | EKG12_ITS ---
Test Reason : Blood Pressure : / mmHG Vent. Rate : 114 BPM Atrial Rate : 114 BPM P-R Int : 174 ms QRS Dur : 096 ms QT Int : 330 ms P-R-T Axes : 007 -11 017 degrees QTc Int : 454 ms Sinus tachycardia Otherwise normal ECG Confirmed by GONZALEZ GRANT, MANPREET ([id number]), food expeditor SHAWNEE CANO ([id number]) on 09/04/2023 7:56:34 AM Referred By: Confirmed By:JONAS ROTH MD
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
[2023-08-23 09:57] LABS: Absolute Lymphocyte Count 0.98 X10^3/uL (0.83-4.51); Absolute Neutrophil Count 15.2 X10^3/uL (2.0-7.7); Basophil# 0.04 X10^3/uL; Basophil% 0.2 % (0-1); Eosinophil# 0.03 X10^3/uL; Eosinophils% 0.2 % (0-5); Hematocrit 41.2 % (40-54); Hemoglobin 12.9 g/dL (13.0-16.5); Lymphocyte # 0.98 X10^3/ul (0.83-4.51); Lymphocyte % 5.7 % (19-41); Mean Corp Hgb Conc 31.3 g/dL (32-36); Mean Corpuscular Hgb 27.1 pg (27.0-32.0); Mean Corpuscular Volume 86.6 fL (80-94); Mean Platelet Vol. 11.4 fl (6.2-12.0); Monocyte# 0.76 X10^3/uL; Monocyte% 4.5 % (0-10); NRBC Flagged by Analyzer 0 % (0-5); Neutrophil # 15.17 X10^3/uL (2.7-7.7); Platelet Count 179 K/mm3 (150-450); RBC Distribution Width CV 15.3 % (11.6-14.6); RBC Distribution Width SD 48.2 fl (35.1-43.9); Red Blood Count 4.76 M/mm3 (4.6-6.2); White Blood Count 17.1 K/mm3 (4.4-11.0)
[2023-08-23] MEDS: Diphth,Pertuss(Acell),Tet Vac 0.5 ML Vial IM (09:58)
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
[2023-08-23 10:15] LABS: Alcohol, Blood (Medical)-Serum < 3.0 mg/dL
[2023-08-23 10:16] LABS: AST(SGOT) 38 U/L (15-37); Alanine Aminotransfer ALT/SGPT 43 U/L (16-61); Albumin, Serum 3.1 g/dL (3.2-5.0); Alkaline Phosphatase 99 U/L (45-117); Anion Gap 8 (5-15); BUN 12 mg/dL (7-18); BUN/Creat Ratio 15.7 RATIO (10-20); Bilirubin, Direct 0.12 mg/dL (0.00-0.30); Calcium,Total 8.5 mg/dL (8.5-10.1); Chloride 104 mmol/L (98-107); Creatinine, Serum 0.77 mg/dL (0.70-1.30); EST Glomerular Filtration Rate 123 mL/min (>60); Est Glom Filt Rate - Afr Amer 149 mL/min (>60); Estimated Creatinine Clearance 161.56 ml/min; Globulin 4.6 g/dL (2.2-4.2); Glucose 122 mg/dL (74-106); Potassium 3.6 mmol/L (3.5-5.1); Protein, Total 7.7 g/dL (6.4-8.2); Sodium Level 138 mmol/L (136-145); Troponin-I HS 14 pg/mL (3.0-78.0)
[2023-08-23 10:23] LABS: Lactic Acid 1.6 mmol/L (0.4-1.9)
--- NOTE | 2023-08-23 11:02 | NURSING ---
DR GALDINO GOMEZ
[2023-08-23 11:06] LABS: Bacteria 0 SEEN /hpf (None Seen); Mucous, Urine 0 SEEN /hpf (<or=2+); Red Blood Cells-Urine 0 SEEN /hpf (0-5); Squamous Epithelial Cells - UA 0 SEEN /hpf (0-5); White Blood Cells 0 SEEN /hpf (0-5)
[2023-08-23 11:11] LABS: Color, Urine Yellow (Yellow); Glucose, Dipstick Normal (Normal); Ketone-Dipstick 5 mg/dl (Negative); Leukocyte Esterase-Dipstick Negative /ul (Negative); Nitrite-Dipstick Negative (Negative); Occult Blood-Urine 10 /ul (Negative); Protein-Dipstick 30 mg/dl (Negative); Urine Bilirubin Dipstick Negative (Negative); Urine Clarity Sl. Cloudy (Clear); Urine Urobilinogen 1 mg/dl (Normal); Urine pH 6.5 (5.0 - 8.0)
--- NOTE | 2023-08-23 11:11 | NURSING ---
MED SURG KITTOE LEFT LEFT CELLULITIS
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
[2023-08-23] MEDS: Ampicillin/Sulbactam 3 GM in 0.9% Normal Saline (100mL MB+) 100 ML IV (11:20)
[2023-08-23] MEDS: Vancomycin HCl 2,000 MG in 0.9% Normal Saline (500mL Bag) 500 ML 250 MG IV (13:08)
[2023-08-23] MEDS: 0.9% Normal Saline (250mL Bag) 250 ML 15 ML IV (13:09)
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
--- NOTE | 2023-08-23 13:46 | WOUNDNOTE ---
wound photo: right medial lower leg
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
--- NOTE | 2023-08-23 13:47 | WOUNDNOTE ---
wound photo: left plantar/lateral heel
--- NOTE | 2023-08-23 14:08 | PCM.RX.CS ---
Consult Antibiotic Management Pharmacy has been consulted to manage selected antiobiotic: Vancomycin Type of Intervention Type of Consult: New start Suspected Infection Suspected Infection: Skin/Soft tissue Prior Doses of Antibiotics Prior Doses of Antibiotics Received/Current Regimen: Received a loading dose of 2gm iv x 1 on 08.23.23. Labs Labs: Sodium 138 mmol/L (136-145) 08/23/23 09:45 Potassium 3.6 mmol/L (3.5-5.1) 08/23/23 09:45 Chloride 104 mmol/L (98-107) 08/23/23 09:45 Carbon Dioxide 26.0 mmol/L (21.0-32.0) 08/23/23 09:45 Anion Gap 8 (5-15) 08/23/23 09:45 BUN 12 mg/dL (7-18) 08/23/23 09:45 Creatinine 0.77 mg/dL (0.70-1.30) 08/23/23 09:45 Est GFR (MDRD) Af Amer 149 mL/min (>60) 08/23/23 09:45 Est GFR (MDRD) Non-Af 123 mL/min (>60) 08/23/23 09:45 BUN/Creatinine Ratio 15.7 RATIO (10-20) 08/23/23 09:45 Glucose 122 mg/dL (74-106) H 08/23/23 09:45 Dosing Weight Weight used for dosin kg Estimated Creatinine Clearance Estimated Creatinine Clearance: >100ml/min Goal Trough Goal Trough: 10-15 mcg/mL Pharmacy Plan for Drug Dosing Pharmacy Plan for Drug Dosing: Recommend a dose of 1500mg iv q8h to start 8hrs after 2gm loading dose. Trough level ordered for before 4th total dose. Pharmacy Service will continue to monitor and adjust dosing as required. Follow-Up Labs Follow-Up Labs: Trough: Vancomycin (08.24.23 @1230 before 1300 dose)
[2023-08-23] MEDS: Acetaminophen 500 MG Tablet 1000 MG PO ×2 (14:26→22:00)
[2023-08-23] MEDS: Cefazolin 1 GM/50 ML BAG IV ×2 (15:46→23:32)
[2023-08-23] MEDS: Ferrous Sulfate 325 MG Tablet PO (16:24)
[2023-08-23] MEDS: Vancomycin HCl 1,500 MG in 0.9% Normal Saline (500mL Bag) 500 ML 250 MG IV (20:37)
[2023-08-23] MEDS: 0.9% Saline Lock 10 ML Syringe IV (20:38)
[2023-08-23] MEDS: Pantoprazole Sodium 20 MG Tablet PO (21:59)
[2023-08-23] MEDS: Lisinopril 10 MG Tablet 20 MG PO (22:00)
[2023-08-23] MEDS: Enoxaparin 40 MG/0.4 ML Syringe SC (22:01)
[2023-08-24 02:38] VITALS: BP 126/73; PULSE 74; RESP 20; TEMP 36.4; O2SAT 97
[2023-08-24] MEDS: Vancomycin HCl 1,500 MG in 0.9% Normal Saline (500mL Bag) 500 ML 250 MG IV (04:33)
[2023-08-24] MEDS: Cefazolin 1 GM/50 ML BAG IV (06:47)
[2023-08-24 07:38] LABS: Absolute Lymphocyte Count 1.15 X10^3/uL (0.83-4.51); Absolute Neutrophil Count 6.6 X10^3/uL (2.0-7.7); Basophil# 0.02 X10^3/uL; Basophil% 0.2 % (0-1); Eosinophil# 0.14 X10^3/uL; Eosinophils% 1.7 % (0-5); Hematocrit 41.4 % (40-54); Hemoglobin 12.2 g/dL (13.0-16.5); Lymphocyte # 1.15 X10^3/ul (0.83-4.51); Lymphocyte % 13.6 % (19-41); Mean Corp Hgb Conc 29.5 g/dL (32-36); Mean Corpuscular Hgb 26.4 pg (27.0-32.0); Mean Corpuscular Volume 89.6 fL (80-94); Mean Platelet Vol. 11.6 fl (6.2-12.0); Monocyte# 0.48 X10^3/uL; Monocyte% 5.7 % (0-10); NRBC Flagged by Analyzer 0 % (0-5); Neutrophil # 6.61 X10^3/uL (2.7-7.7); Neutrophil % 78.4 % (47-70); Platelet Count 149 K/mm3 (150-450); RBC Distribution Width CV 15.4 % (11.6-14.6); RBC Distribution Width SD 50.9 fl (35.1-43.9); Red Blood Count 4.62 M/mm3 (4.6-6.2); White Blood Count 8.4 K/mm3 (4.4-11.0)
[2023-08-24 08:00] VITALS: BP 126/64; PULSE 86; RESP 18; TEMP 36.7; O2SAT 99
[2023-08-24 08:09] LABS: Anion Gap 4 (5-15); BUN 9 mg/dL (7-18); Calcium,Total 8.6 mg/dL (8.5-10.1); Chloride 107 mmol/L (98-107); EST Glomerular Filtration Rate 201 mL/min (>60); Est Glom Filt Rate - Afr Amer 243 mL/min (>60); Estimated Creatinine Clearance 248.81 ml/min; Glucose 107 mg/dL (74-106); Magnesium 2.3 mg/dL (1.6-2.6); Phosphorus 2.8 mg/dL (2.5-4.9); Potassium 3.4 mmol/L (3.5-5.1); Sodium Level 140 mmol/L (136-145)
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
--- NOTE | 2023-08-24 09:22 | CASEMGMT ---
LISA CM into pt room, pt sitting up in chair. Pt denies any homegoing needs. Pt states he can care for open areas on legs.
--- NOTE | 2023-08-24 10:19 | NURSING ---
pt wishes to take meds at home so, am doses were not given for that reason-pt aware to [employer] spot picker #[address] pharmacy 12:30 vanc trough cancelled w/lab
== END 2023-08-24 10:59 | disposition home or self-care (01) ==
LOC: ED 11:01 → MS3 13:08
PROVIDERS: Admitting Provider Internal Medicine; Emergency Provider Emergency Medicine; PCP Family Medicine; Visit Provider Internal Medicine
DX: L03.116 Cellulitis of left lower limb (principal); Z68.45 Body mass index [BMI] 70 or greater, adult; E66.01 Morbid (severe) obesity due to excess calories; I10 Essential (primary) hypertension; S30.1XXA Contusion of abdominal wall, initial encounter; G47.33 Obstructive sleep apnea (adult) (pediatric); S40.012A Contusion of left shoulder, initial encounter; K21.9 Gastro-esophageal reflux disease without esophagitis; I87.2 Venous insufficiency (chronic) (peripheral); R00.0 Tachycardia, unspecified; V43.52XA Car driver injured in collision with other type car in traffic accident, initial encounter; E87.6 Hypokalemia; Y93.89 Activity, other specified; S80.812A Abrasion, left lower leg, initial encounter; D63.8 Anemia in other chronic diseases classified elsewhere
CPT/HCPCS: 36415; 74177; 80048; 80076; 81001; 82077; 83605; 83735; 84100; 84484; 85025; 87040; 90715; 93005; 96365; 96366; 96367; 96372; 99221; 99285; J7040; J7050; Q9967; A4216; G0378; J0295

== ENCOUNTER → 2024-07-26 | Outpatient (CLI) | payer OTHER, SELFPAY ==
--- NOTE | 2024-07-26 08:00 | RAD_ITS ---
EXAMINATION: Double contrast UPPER GI SERIES INDICATION: Male, 34 years dysphagia. History of reflux. FLUOROSCOPY TIME (if supplied): (1:16) minutes/seconds. 26 fluoroscopic images were obtained. TECHNIQUE: Radiographic and fluoroscopic images of the distal esophagus, stomach, and proximal small intestine were obtained following the oral ingestion of barium. Limited examination due to the patient''s body habitus. COMPARISON: None. FINDINGS: There is no evidence for organomegaly, abnormal calcifications, or abnormal bowel gas pattern. The psoas margins and flank stripes are normal. The visualized osseous structures are normal. The mucosa of the esophagus, stomach and duodenum is normal in appearance without evidence for stricture, ulceration, mass or diverticulum. There is no evidence for hiatal hernia or gastroesophageal reflux. RAD/Upper GI Dual Contrast IMPRESSION: 1. Normal double contrast upper gastrointestinal study. Electronically Signed: Tray Gavin MD at 8:51 EDT ,
== END | disposition home or self-care (01) ==
LOC: RAD 07:40
PROVIDERS: PCP Family Medicine
DX: K21.9 Gastro-esophageal reflux disease without esophagitis (principal); D50.9 Iron deficiency anemia, unspecified
CPT/HCPCS: 74246

== ENCOUNTER 2024-11-07 04:28 | Emergency (ER) | payer OTHER, SELFPAY ==
[2024-11-07 04:28] VITALS: BP 178/97
[2024-11-07 04:29] VITALS: BP 155/103; PULSE 107; RESP 28; TEMP 37.2; O2SAT 96; BMI 76.6
--- NOTE | 2024-11-07 04:33 | EX.ED.DYSGE1 ---
HPI History of Present Illness Chief Complaint: Palpitations Informant: patient Onset/Context/Timing Onset: Today Context: Sudden Onset Timing: Intermittent Quality: My heart felt like it was not beating right Location: Chest Worsened by: Nothing Relieved by: Nothing Narrative Narrative: Patient presents with palpitations and elevated blood pressure that began tonight while he was at work. Patient states he felt like his heart was not beating right. Patient states he also felt a lump in his throat. Patient states that his symptoms resolved just prior to arrival to the emergency department. Patient states he was doing some lifting when his symptoms began. Patient states nothing seems to make them better and nothing makes them worse. Patient denies any recent fevers or chills. Patient does admit to a cough. Patient states he did cough while he had the lump in his throat but states this did not change his symptoms at all. [facility] Medical History Chronic pain CPAP (continuous positive airway pressure) dependence Irregular heart beat Anxiety and depression Sleep apnea HTN (hypertension) GERD (gastroesophageal reflux disease) DHAVAL (obstructive sleep apnea) Morbid obesity with BMI of 70 and over, adult Home Medications ?Medication ?Instructions ?Recorded ?Last Taken ?Type ferrous sulfate 325 mg (65 mg 325 mg PO BIDCM supplement 12/03/20 07/16/21 History iron) tablet furosemide 40 mg tablet 40 mg PO DAILY diuretic 12/03/20 07/14/21 History lisinopril 10 mg tablet 20 mg PO QHS blood pressure 12/03/20 07/14/21 History omeprazole 20 mg capsule,delayed 20 mg PO QHS GERD 12/03/20 07/14/21 History release cholecalciferol (vitamin D3) 1,250 1,250 mcg PO FR supplement 07/16/21 07/09/21 History mcg (50,000 unit) capsule metoprolol succinate 25 mg 25 mg PO DAILY HTN, HR 07/16/21 07/15/21 History tablet,extended release 24 hr escitalopram oxalate 20 mg tablet 20 mg PO DAILY 11/07/24 Unknown History Allergy/AdvReac Type Severity Reaction Status Date / Time Iodinated Contrast Media AdvReac Vomiting Verified 11/07/24 04:32 (CONTRASTS) Surgical History S/P wisdom tooth extraction Social History household members: significant other Smoking Status: Never smoker alcohol intake: never substance use type: does not use ROS ROS ED Constitutional Constitutional ED: Denies chills or fever(s) Eyes Eyes: Denies blurry vision or change in vision ENT ENT ED: Denies rhinorrhea or sore throat Cardiovascular Cardiovascular: Reports palpitations; Denies chest pain Respiratory/Chest Respiratory/Chest: Reports cough; Denies dyspnea Gastrointestinal Gastrointestinal: Denies nausea or vomiting Genitourinary Genitourinary ED: Denies dysuria or hematuria Musculoskeletal Musculoskeletal: Denies back pain or neck pain Integumentary Denies abscess or rash Neurologic Neurologic: Denies headache(s) or weakness Allergic/Immunologic Allergic/Immunologic ED: Denies mouth swelling or urticaria EXAM Physical Exam Const Vital Signs: 11/07/24 04:28 11/07/24 04:29 11/07/24 04:49 Temperature 98.9 F Temperature Source Oral Pulse Rate 107 H Respiratory Rate 28 H Blood Pressure 178/97 H 155/103 H Blood Pressure Mean 124 120 Pulse Ox 96 Oxygen Delivery Method Room Air Room Air Positive well nourished and well developed Constitutional Narrative: Patient has a BMI of 76.7 General Appearance ED: well developed and NAD HEENT Reports moist mucous membranes Neck supple and no JVD Resp normal respiratory effort Auscultation: diminished lung sounds diffuse Cardio regular rhythm Rate: tachycardic GI non-tender and non-distended Palpation: soft Extremity General Extremety ED: Negative for edema or tenderness General Extremity: Negative for edema Neuro oriented x3, CN's II-XII intact bilaterally and no sensory deficits noted Sensorium / Orientation: alert Motor Exam: strength 5/5 throughout Psych mental status grossly normal MDM MDM MDM Narrative Medical decision making narrative: Differential diagnosis includes cardiac dysrhythmia, cardiac ischemia, electrolyte abnormality, pneumonia, bronchitis, viral illness, and anxiety. EKG will be obtained to assess for cardiac dysrhythmia and cardiac ischemia. Chest x-ray will be obtained to assess for pneumonia and bronchitis. CBC will be obtained to assess for anemia and leukocytosis. Basic metabolic profile will be obtained to assess for electrolyte abnormality and renal function. High-sensitivity troponin will be obtained to assess for cardiac ischemia. 2-hour repeat high-sensitivity troponin will be obtained to assess for ongoing cardiac ischemia. Lab Data Attestation: I reviewed the patient's lab results. Lab results narrative: CBC was reviewed and was within normal limits. Basic metabolic profile was reviewed and was within normal limits. High-sensitivity troponin was reviewed and was normal at 11. Labs: Laboratory Results - last 24 hr 11/07/24 04:36 WBC 10.1 RBC 5.16 Hgb 14.4 Hct 44.5 MCV 86.2 MCH 27.9 MCHC 32.4 RDW Std Deviation 46.9 H RDW Coeff of Melchor 14.8 H Plt Count 184 MPV 11.9 Immature Gran % (Auto) 0.500 Neut % (Auto) 70.4 H Lymph % (Auto) 20.2 [place] % (Auto) 6.6 Eos % (Auto) 1.9 Baso % (Auto) 0.4 Absolute Neuts (auto) 7.1 Absolute Lymphs (auto) 2.05 Nucleated RBC % 0 Sodium 139 Potassium 3.5 Chloride 107 Carbon Dioxide 28.0 Anion Gap 4 L BUN 13 Creatinine 0.70 Estim Creat Clear Calc 346.64 Est GFR (MDRD) Af Amer 164 Est GFR (MDRD) Non-Af 135 BUN/Creatinine Ratio 18.5 Glucose 105 Calcium 9.3 Troponin I High Sens 11 Radiography Chest X-Ray - ED: 2 View, Read by ED Physician, Read by Radiologist and No Acute Disease Diagnostic Testing: Clinical Impression(s) from Imaging Studies Chest X-Ray 11/07/24 04:50 IMPRESSION: No significant interval change. No acute findings in the chest. Electronically Signed: Noel Argueta MD at 5:59 EST , PA and lateral chest x-ray was obtained. There are 2 views. On my independent interpretation, lung franco are clear. There is normal cardiac silhouette. Bony thorax is normal. There is no acute process noted. Radiologist also interpreted the x-ray and agrees. EKG Initial EKG: Attestation: I personally reviewed and interpreted this EKG as follows: Interpretation: Sinus Rhythm (100) and No Acute Injury Pattern Comments: EKG was obtained. On my independent interpretation, it showed a normal sinus rhythm with a rate of 100. WA interval, QRS interval, and QTc intervals were all normal. Raymond was normal. There are no acute ST or T wave changes. There is left ventricular hypertrophy noted. Prior EKG tracings: available for review Prior: Unchanged (08/23/2023) Treatment and Re-Evaluation :: Patient was given aspirin. Patient was given IV fluids. Patient was advised of his findings. Patient has a HEART score of 1. Patient was advised that this is low risk for acute cardiac event. Patient had no episodes of dysrhythmias here in the emergency department. Patient was instructed to follow-up with his primary care physician in 5 to 7 days. Patient was instructed to return if worse in any way. Patient understood and was agreeable with the plan. All questions were answered. Discharge Plan Triage Chief Complaint: Palpitations ED Provider: Reji Davies Dx/Rx/DC Orders Clinical Impression: Heart palpitations, Body mass index (BMI) greater than 70 in adult Instructions: ED Palpitations Prescriptions: No Action furosemide 40 MG tablet 40 mg PO DAILY ferrous sulfate 325 MG tablet 325 mg PO BIDCM lisinopril 10 MG tablet 20 mg PO QHS omeprazole 20 MG capsule,delayed release(DR/EC) 20 mg PO QHS metoprolol succinate 25 mg tablet extended release 24 hr 25 mg PO DAILY Patient Comments: Take 1 tablet by mouth once daily. cholecalciferol (vitamin D3) 1,250 mcg (50,000 unit) capsule 1,250 mcg PO FR Patient Comments: TAKE 1 CAPSULE BY MOUTH EVERY WEEK escitalopram oxalate 20 mg tablet 20 mg PO DAILY Primary Care Provider: Gerard Gardner Referrals: Gerard Gardner MD [Primary Care Provider] - 5-7 Days Print Language: Vietnamese Disposition Disposition: Home, Self Care
--- NOTE | 2024-11-07 04:50 | RAD_ITS ---
EXAM: XR CHEST, 2 VIEWS CLINICAL INDICATION: chest pain TECHNIQUE: Frontal and lateral views of the chest. COMPARISON: Previous chest radiographs of 07/15/2021. FINDINGS: LIMITATIONS: Respiratory motion. Body habitus. LUNGS AND PLEURAL SPACES: Lungs are not hyperinflated. No acute pulmonary infiltrates or pleural effusions. No peribronchial cuffing. HEART: Unremarkable. Cardiac silhouette not enlarged. Normal pulmonary vasculature. MEDIASTINUM: Central airways and mediastinal contour are unremarkable. BONES/JOINTS: Unremarkable. No acute fracture. SOFT TISSUES: Unremarkable. RAD/Chest PA and Lateral IMPRESSION: No significant interval change. No acute findings in the chest. Electronically Signed: Noel Argueta MD at 5:59 EST ,
[2024-11-07 04:56] LABS: Absolute Lymphocyte Count 2.05 X10^3/uL (0.83-4.51); Absolute Neutrophil Count 7.1 X10^3/uL (2.0-7.7); Basophil# 0.04 X10^3/uL; Basophil% 0.4 % (0-1); Eosinophil# 0.19 X10^3/uL; Eosinophils% 1.9 % (0-5); Hematocrit 44.5 % (40-54); Hemoglobin 14.4 g/dL (13.0-16.5); Lymphocyte # 2.05 X10^3/ul (0.83-4.51); Lymphocyte % 20.2 % (19-41); Mean Corp Hgb Conc 32.4 g/dL (32-36); Mean Corpuscular Hgb 27.9 pg (27.0-32.0); Mean Corpuscular Volume 86.2 fL (80-94); Mean Platelet Vol. 11.9 fl (6.2-12.0); Monocyte# 0.67 X10^3/uL; Monocyte% 6.6 % (0-10); NRBC Flagged by Analyzer 0 % (0-5); Neutrophil # 7.14 X10^3/uL (2.7-7.7); Neutrophil % 70.4 % (47-70); Platelet Count 184 K/mm3 (150-450); RBC Distribution Width CV 14.8 % (11.6-14.6); RBC Distribution Width SD 46.9 fl (35.1-43.9); Red Blood Count 5.16 M/mm3 (4.6-6.2); White Blood Count 10.1 K/mm3 (4.4-11.0)
[2024-11-07] MEDS: Aspirin 81 MG TAB.CHEW 324 MG PO (05:06)
[2024-11-07] MEDS: 0.9% Normal Saline (1000mL) 1,000 ML 1000 ML IV (05:06)
[2024-11-07 05:22] LABS: Anion Gap 4 (5-15); BUN 13 mg/dL (7-18); BUN/Creat Ratio 18.5 RATIO (10-20); Calcium,Total 9.3 mg/dL (8.5-10.1); Chloride 107 mmol/L (98-107); EST Glomerular Filtration Rate 135 mL/min (>60); Est Glom Filt Rate - Afr Amer 164 mL/min (>60); Estimated Creatinine Clearance 346.64 ml/min; Glucose 105 mg/dL (74-106); Potassium 3.5 mmol/L (3.5-5.1); Sodium Level 139 mmol/L (136-145); Troponin-I HS (w/2H Reflex) 11 pg/mL (3.0-78.0)
[2024-11-07 06:17] VITALS: BP 144/91; PULSE 94; RESP 20; TEMP 36.8; O2SAT 96
[2024-11-07 06:51] LABS: Reflex Troponin-HS? (from REC) Y
== END 2024-11-07 06:18 | disposition home or self-care (01) ==
PROVIDERS: Emergency Provider Emergency Medicine; PCP Family Medicine; Visit Provider Emergency Medicine
DX: R00.2 Palpitations (principal); E66.01 Morbid (severe) obesity due to excess calories; Z68.45 Body mass index [BMI] 70 or greater, adult; I10 Essential (primary) hypertension; R05.9 Cough, unspecified; G89.29 Other chronic pain; G47.33 Obstructive sleep apnea (adult) (pediatric); K21.9 Gastro-esophageal reflux disease without esophagitis; Z79.899 Other long term (current) drug therapy